=== PATIENT | male | born 1980 | race Caucasian/White ===

== ENCOUNTER 2019-05-04 10:05 | Emergency (ER) | payer MEDICARE, OTHER ==
[2019-05-04 10:24] VITALS: BP 130/90; PULSE 73
[2019-05-04] MEDS ORDERED: Ondansetron 4 MG/2 ML SDV IVPUSH ONE (10:41)
[2019-05-04] MEDS ORDERED: Sodium Chloride 0.9% 1,000 ML IV STA (10:41)
[2019-05-04] MEDS ORDERED: Sodium Chloride 0.9% 10 ML Syringe FLUSH PRN (10:41)
[2019-05-04] MEDS ORDERED: HYDROmorphone 1 MG/ML Syringe IVPUSH ONE (10:43)
--- NOTE | 2019-05-04 11:09 | EDM.PDOC ---
ED HPI GENERAL MEDICAL PROBLEM - General Chief Complaint: Abdominal Pain Stated Complaint: VOMITING X 1WEEK,RIGHT SIDE PAIN Time Seen by Provider: 05/04/19 10:34 Source of Information: Reports: Patient History Limitations: Reports: No Limitations - History of Present Illness INITIAL COMMENTS - FREE TEXT/NARRATIVE: The patient presents with left lower abdominal pain, nausea and vomiting. This started about a week ago. He says there is also pain to the mid abdomen. He has no fever but he does have chills. He has some loose stools at times. He has no dysuria. He still has his gallbladder and appendix. He has no chest pain or shortness of breath. He has generalized weakness. Onset: Gradual Duration: Week(s): (1) Location: Reports: Abdomen Quality: Reports: Sharp Severity: Moderate Improves with: Reports: None Associated Symptoms: Reports: Fever/Chills, Nausea/Vomiting. Denies: Chest Pain , Cough, Headaches, Shortness of Breath Left Lower Abdomen Pain Score (Numeric/FACES): 6 - Related Data Allergies Allergy/AdvReac Type Severity Reaction Status Date / Time amoxicillin Allergy Cannot Verified 05/04/19 10:24 Remember Penicillins Allergy Cannot Verified 05/04/19 10:24 Remember Home Meds: Home Meds DULoxetine HCl [Cymbalta] 60 mg PO DAILY 01/04/16 [History] traMADol [Ultram] 50 mg PO Q8HR PRN 01/04/16 [History] Ondansetron [Zofran ODT] 4 mg PO Q6H PRN #20 tab.dis 05/04/19 [Rx] Rosuvastatin [Crestor] 20 mg PO DAILY 05/04/19 [History] metFORMIN [Glucophage XR] 1,000 mg PO DAILY 05/04/19 [History] risperiDONE 2 mg PO QAM 05/04/19 [History] risperiDONE 3 mg PO QPM 05/04/19 [History] tiZANidine [Zanaflex] 4 mg PO ASDIRECTED PRN 05/04/19 [History] Past Medical History HEENT History: Reports: Impaired Vision Cardiovascular History: Reports: High Cholesterol Respiratory History: Reports: Sleep Apnea Other Respiratory History: bipap Gastrointestinal History: Reports: Chronic Constipation, GERD, Hemorrhoids Musculoskeletal History: Reports: Fibromyalgia Neurological History: Reports: Concussion Psychiatric History: Reports: Anxiety, Dementia, PTSD, Schizophrenia Social & Family History - Tobacco Use Smoking Status *Q: Former Smoker Used Tobacco, but Quit: Yes Month/Year Tobacco Last Used: 2016 - Caffeine Use Caffeine Use: Reports: None - Recreational Drug Use Recreational Drug Use: No ED ROS GENERAL - Review of Systems Review Of Systems: See Below Constitutional: Reports: Chills. Denies: Fever HEENT: Reports: No Symptoms Respiratory: Reports: No Symptoms Cardiovascular: Reports: No Symptoms Endocrine: Reports: No Symptoms GI/Abdominal: Reports: Abdominal Pain, Nausea, Vomiting : Reports: No Symptoms Musculoskeletal: Reports: No Symptoms Skin: Reports: No Symptoms ED EXAM, GI/ABD - Physical Exam Exam: See Below Exam Limited By: No Limitations General Appearance: Alert, No Apparent Distress Ears: Normal External Exam Nose: Normal Inspection Head: Atraumatic, Normocephalic Neck: Normal Inspection Respiratory/Chest: No Respiratory Distress, Lungs Clear, Normal Breath Sounds Cardiovascular: Regular Rate, Rhythm, No Edema, No Murmur GI/Abdominal Exam: Soft, No Organomegaly, No Mass, Tender (Moderate pain upon palpation to the left abdomen and mid abdomen) Course - Vital Signs Last Recorded V/S: Last Vital Signs Temp 98.4 F 05/04/19 10:21 Pulse 73 05/04/19 10:21 Resp 14 05/04/19 10:21 BP 130/90 05/04/19 10:21 Pulse Ox 100 05/04/19 10:21 - Orders/Labs/Meds Orders: Active Orders 24 hr Category Date Time Status Peripheral IV Care [RC] . DIRECTED Care 05/04/19 10:42 Active Sodium Chloride 0.9% [Saline Flush] Med 05/04/19 10:41 Active 10 ml FLUSH ASDIRECTED PRN ED Antiemetic Medication Reflex [OM.PC] Stat Oth 05/04/19 10:42 Ordered Peripheral IV Insertion Adult [OM.PC] Stat Oth 05/04/19 10:41 Ordered Medication Orders Sodium Chloride (Saline Flush) 10 ml FLUSH ASDIRECTED PRN PRN Reason: Keep Vein Open Last Admin: 05/04/19 10:59 Dose: 10 ml Labs: Laboratory Tests 05/04/19 05/04/19 05/04/19 Range/Units 10:46 10:55 10:55 WBC 5.52 (4.23-9.07) K/mm3 RBC 4.89 (4.63-6.08) M/mm3 Hgb 14.7 (13.7-17.5) gm/dl Hct 43.2 (40.1-51.0) % MCV 88.3 (79.0-92.2) fl MCH 30.1 (25.7-32.2) pg MCHC 34.0 (32.2-35.5) g/dl RDW Std Deviation 38.2 (35.1-43.9) fL Plt Count 322 (163-337) K/mm3 MPV 10.4 (9.4-12.3) fl Neut % (Auto) 66.4 (34.0-67.9) % Lymph % (Auto) 23.4 (21.8-53.1) % [place] % (Auto) 8.5 (5.3-12.2) % Eos % (Auto) 1.3 (0.8-7.0) Baso % (Auto) 0.2 (0.1-1.2) % Neut # (Auto) 3.67 (1.78-5.38) K/mm3 Lymph # (Auto) 1.29 L (1.32-3.57) K/mm3 [place] # (Auto) 0.47 (0.30-0.82) K/mm3 Eos # (Auto) 0.07 (0.04-0.54) K/mm3 Baso # (Auto) 0.01 (0.01-0.08) K/mm3 Sodium 142 (136-145) mEq/L Potassium 4.2 (3.5-5.1) mEq/L Chloride 104 (98-107) mEq/L Carbon Dioxide 28 (21-32) mEq/L Anion Gap 14.2 (5-15) BUN 10 (7-18) mg/dL Creatinine 1.3 (0.7-1.3) mg/dL Est Cr Clr Drug Dosing 67.48 mL/min Estimated GFR (MDRD) > 60 (>60) mL/min BUN/Creatinine Ratio 7.7 L (14-18) Glucose 107 H (74-106) mg/dL Calcium 9.0 (8.5-10.1) mg/dL Total Bilirubin 0.4 (0.2-1.0) mg/dL AST 32 (15-37) U/L ALT 64 H (16-63) U/L Alkaline Phosphatase 97 (46-116) U/L Total Protein 7.6 (6.4-8.2) g/dl Albumin 3.9 (3.4-5.0) g/dl Globulin 3.7 gm/dL Albumin/Globulin Ratio 1.1 (1-2) Lipase 83 (73-393) U/L Urine Color Yellow (Yellow) Urine Appearance Clear (Clear) Urine pH 7.0 (5.0-8.0) Ur Specific [place] 1.020 (1.005-1.030) Urine Protein Negative (Negative) Urine Glucose (UA) Negative (Negative) Urine Ketones Negative (Negative) Urine Occult Blood Negative (Negative) Urine Nitrite Negative (Negative) Urine Bilirubin Negative (Negative) Urine Urobilinogen 0.2 (0.2-1.0) Ur Leukocyte Esterase Negative (Negative) Urine RBC Not seen (0-5) /hpf Urine WBC Not seen (0-5) /hpf Ur Squamous Epith Cells 0-5 (0-5) /hpf Urine Bacteria Rare (FEW) /hpf Urine Mucus Few (FEW) /hpf Meds: Medications Generic Name Dose Route Start Last Admin Trade Name Freq PRN Reason Stop Dose Admin Sodium Chloride 10 ml 05/04/19 10:41 05/04/19 10:59 Saline Flush FLUSH 10 ml ASDIRECTED PRN Administration Keep Vein Open Discontinued Medications Generic Name Dose Route Start Last Admin Trade Name Freq PRN Reason Stop Dose Admin Diatrizoate Meglum/Diatrizoate Sod 90 ml 05/04/19 11:43 05/04/19 12:07 Gastrografin 37% PO 05/04/19 11:44 90 ml ONETIME ONE Administration Hydromorphone HCl 1 mg 05/04/19 10:43 05/04/19 10:59 Dilaudid IVPUSH 05/04/19 10:44 1 mg ONETIME ONE Administration Sodium Chloride 1,000 mls @ 1,000 mls/hr 05/04/19 10:41 05/04/19 11:00 Normal Saline IV 05/04/19 11:40 1,000 mls/hr .BOLUS STA Administration Iopamidol 100 ml 05/04/19 11:43 05/04/19 12:08 Isovue-300 (61%) IVPUSH 05/04/19 11:44 100 ml ONETIME ONE Administration Ondansetron HCl 4 mg 05/04/19 10:41 05/04/19 10:59 Zofran IVPUSH 05/04/19 10:42 4 mg ONETIME ONE Administration Sodium Chloride 10 ml 05/04/19 11:43 05/04/19 12:08 Saline Flush FLUSH 05/04/19 11:44 10 ml ONETIME ONE Administration - Re-Assessments/Exams Free Text/Narrative Re-Assessment/Exam: 05/04/19 11:08 I ordered an IV NS 1L bolus, zofran 4mg IV, dilaudid 1mg IV, labs, UA and a CT of his abdomen and pelvis with IV and oral contrast. 05/04/19 13:57 His CBC and CMP look good. His lipase is normal. His CT shows fatty infiltration within the liver. Nothing acute appreciated on CT study of the abdomen and pelvis. He feels better. I will discharge him home. Departure - Departure Time of Disposition: 14:00 Disposition: Home, Self-Care 01 Condition: Good Clinical Impression: Gastroenteritis - Discharge Information *PRESCRIPTION DRUG MONITORING PROGRAM REVIEWED*: No *COPY OF PRESCRIPTION DRUG MONITORING REPORT IN PATIENT DASHA: No Prescriptions: Ondansetron [Zofran ODT] 4 mg PO Q6H PRN #20 tab.dis PRN Reason: Nausea\vomiting Referrals: Glenny Segura PA-C [Primary Care Provider] - 1 Week Forms: ED Department Discharge Additional Instructions: Drink plenty of fluids. Take zofran every 6 hours as needed for nausea and vomiting. Advance your diet as tolerated. - My Orders Last 24 Hours: My Active Orders 05/04/19 10:41 Sodium Chloride 0.9% [Saline Flush] 10 ml FLUSH ASDIRECTED PRN Peripheral IV Insertion Adult [OM.PC] Stat 05/04/19 10:42 Peripheral IV Care [RC] . DIRECTED ED Antiemetic Medication Reflex [OM.PC] Stat - Assessment/Plan Last 24 Hours: My Active Orders 05/04/19 10:41 Sodium Chloride 0.9% [Saline Flush] 10 ml FLUSH ASDIRECTED PRN Peripheral IV Insertion Adult [OM.PC] Stat 05/04/19 10:42 Peripheral IV Care [RC] . DIRECTED ED Antiemetic Medication Reflex [OM.PC] Stat
[2019-05-04] MEDS ORDERED: Sodium Chloride 0.9% 10 ML Syringe FLUSH ONE (11:43)
[2019-05-04] MEDS ORDERED: Iopamidol 612 MG/ML 100 ML Bottle IVPUSH ONE (11:43)
[2019-05-04] MEDS ORDERED: Diatrizoate Meglumine/Diatrizoate Sodium 37% 120 ML Bottle PO ONE (11:43)
--- NOTE | 2019-05-04 13:12 | CT ---
CT abdomen and pelvis Technique: Multiple axial sections were obtained from above the dome of the diaphragm inferiorly through the pubic symphysis. Intravenous and oral contrast was utilized. Delayed images were obtained through the bladder. Comparison: No prior abdominal imaging. Findings: Visualized lung bases show nothing acute. Liver shows mild fatty infiltration without focal abnormality being seen within the liver. Spleen appears within normal limits. Soft tissue nodule located medial to the spleen is compatible with accessory splenic tissue. Adrenal glands show no nodule. Pancreas is within normal limits. One or 2 duodenal diverticuli are seen. Largest diverticula measures 2.5 cm. Kidneys show symmetric contrast enhancement with no hydronephrosis or mass. Aorta shows no aneurysm. No retroperitoneal adenopathy or mesenteric abnormalities are seen. Appendix is seen and is normal in size. No pelvic mass or adenopathy is identified. Delayed images show contrast within the distal ureters and within the bladder. Bone window settings were reviewed which appear within normal limits for the patient's age. Impression: 1. Fatty infiltration within the liver. 2. Nothing acute is appreciated on CT study of the abdomen and pelvis. Diagnostic code #2
== END 2019-05-04 14:15 | disposition home or self-care (01) ==
LOC: JD.ED 10:05
DX: K52.9 Noninfective gastroenteritis and colitis, unspecified (principal); F32.9 Major depressive disorder, single episode, unspecified; E78.00 Pure hypercholesterolemia, unspecified; Z88.1 Allergy status to other antibiotic agents; Z88.0 Allergy status to penicillin
CPT/HCPCS: 36415; 74177; 80053; 81001; 83690; 85025; 96361; 96374; 96375; 99284; J1170; J2405; J7040; Q9963; Q9967; 99283

== ENCOUNTER 2019-11-04 22:25 | Emergency (ER) | payer MEDICARE, OTHER ==
[2019-11-04 22:39] VITALS: BP 120/89; PULSE 87
--- NOTE | 2019-11-04 22:59 | EDM.PDOC ---
ED HPI GENERAL MEDICAL PROBLEM - General Chief Complaint: Abdominal Pain Stated Complaint: left arm pain abdominal pain Time Seen by Provider: 11/04/19 22:28 Source of Information: Reports: Patient History Limitations: Reports: No Limitations - History of Present Illness INITIAL COMMENTS - FREE TEXT/NARRATIVE: This is a 39-year-old male. He comes tonight because he is having 2 problems. The first one involves his neck in which he injured it back in 2007 and since that time he is been getting progressive degenerative disc disease and had an MRI about a year ago and due to the findings was sent to a neurosurgeon who states he would not do any surgery on his neck. Patient states that it seems to be getting worse and he is on tramadol chronically for his symptoms. He does have pain that runs down his left arm especially with movement of that cervical spine. He says it involves all of his fingers. He has not seen his family doctor recently and I have encouraged him to go back to his family doctor and be reassessed and possibly another MRI and possibly be sent back to the neurosurgeon since he is having radicular symptoms. That is what he will do. His second problem is chronic abdominal pain is been going on for several years. He thinks he may be dehydrated but he has been drinking fluids appropriately. He thinks it might be his kidneys because he might be dehydrated but he is drinking fluids appropriately. He has not had a bowel movement in 2 days which is unusual for him. Most of his abdominal discomfort is in the lower abdomen not the upper abdomen. He denies any fever or chills there is been no nausea or vomiting. Again this is not a new problem as far as abdominal pain but he comes to the ER because he is concerned that he is dehydrated. He denies any cough denies any congestion denies any other acute symptoms. Abdomen Pain Score (Numeric/FACES): 10 - Related Data Allergies Allergy/AdvReac Type Severity Reaction Status Date / Time amoxicillin Allergy Severe Cannot Verified 11/04/19 22:40 Remember Penicillins Allergy Severe Cannot Verified 11/04/19 22:40 Remember Home Meds: Home Meds DULoxetine HCl [Cymbalta] 60 mg PO DAILY 01/04/16 [History] traMADol [Ultram] 50 mg PO Q8HR PRN 01/04/16 [History] Ondansetron [Zofran ODT] 4 mg PO Q6H PRN #20 tab.dis 05/04/19 [Rx] Rosuvastatin [Crestor] 20 mg PO DAILY 05/04/19 [History] metFORMIN [Glucophage XR] 1,000 mg PO DAILY 05/04/19 [History] risperiDONE 2 mg PO QAM 05/04/19 [History] risperiDONE 3 mg PO QPM 05/04/19 [History] tiZANidine [Zanaflex] 4 mg PO ASDIRECTED PRN 05/04/19 [History] Ubidecarenone [Co Q-10] 1 cap PO DAILY 11/04/19 [History] Past Medical History HEENT History: Reports: Impaired Vision Cardiovascular History: Reports: High Cholesterol Respiratory History: Reports: Sleep Apnea Other Respiratory History: bipap Gastrointestinal History: Reports: Chronic Constipation, GERD, Hemorrhoids Musculoskeletal History: Reports: Fibromyalgia Neurological History: Reports: Concussion Psychiatric History: Reports: Anxiety, Dementia, PTSD, Schizophrenia Social & Family History - Caffeine Use Caffeine Use: Reports: None ED ROS GENERAL - Review of Systems Review Of Systems: See Below Constitutional: Denies: Fever, Chills HEENT: Reports: No Symptoms Respiratory: Denies: Shortness of Breath, Cough Cardiovascular: Denies: Chest Pain Endocrine: Reports: No Symptoms GI/Abdominal: Reports: Abdominal Pain, Constipation. Denies: Diarrhea, Decreased Appetite, Nausea, Vomiting : Denies: Dysuria Musculoskeletal: Reports: Neck Pain, Arm Pain Skin: Reports: No Symptoms Neurological: Reports: Tingling Psychiatric: Reports: No Symptoms Hematologic/Lymphatic: Reports: No Symptoms ED EXAM, GI/ABD - Physical Exam Exam: See Below Exam Limited By: No Limitations General Appearance: Alert, WD/WN, No Apparent Distress Eyes: Bilateral: Normal Appearance Ears: Normal External Exam Nose: Normal Inspection Throat/Mouth: Normal Lips, Normal Voice, No Airway Compromise, Other (Mucous membranes are moist) Head: Normocephalic Neck: Supple, Other (Complaint of pain in the right trapezius and paraspinal muscles of the neck and when he laterally bends his head to the right he complains of increased pain down his left arm.) Respiratory/Chest: No Respiratory Distress, Lungs Clear, Normal Breath Sounds Cardiovascular: Regular Rate, Rhythm, No Murmur GI/Abdominal Exam: Soft, Other (Some mild soreness in the lower abdomen on palpation but there is no masses no rebound there is no peritoneal irritation, his upper abdomen is nontender) Back Exam: Full Range of Motion Extremities: Normal Inspection, Normal Range of Motion, Other (Appears to have good function of that left upper extremity though he complains of tingling in his fingers all of them though he does have feeling to them as well) Neurological: Alert, Oriented Psychiatric: Normal Mood, Flat Affect Skin Exam: Warm, Intact Course - Vital Signs Last Recorded V/S: Last Vital Signs Temp 98 F 11/04/19 22:33 Pulse 87 11/04/19 22:33 Resp 18 11/04/19 22:33 BP 120/89 11/04/19 22:33 Pulse Ox 95 11/04/19 22:33 - Orders/Labs/Meds Orders: Active Orders 24 hr Category Date Time Status KUB [Abdomen 1V Flat] [CR] Stat Exams 11/04/19 22:52 Taken Labs: Laboratory Tests 11/04/19 11/04/19 11/04/19 Range/Units 23:10 23:15 23:15 WBC 8.04 (4.23-9.07) K/mm3 RBC 4.75 (4.63-6.08) M/mm3 Hgb 14.4 (13.7-17.5) gm/dl Hct 43.0 (40.1-51.0) % MCV 90.5 (79.0-92.2) fl MCH 30.3 (25.7-32.2) pg MCHC 33.5 (32.2-35.5) g/dl RDW Std Deviation 40.1 (35.1-43.9) fL Plt Count 336 (163-337) K/mm3 MPV 10.5 (9.4-12.3) fl Neut % (Auto) 53.8 (34.0-67.9) % Lymph % (Auto) 32.0 (21.8-53.1) % [place] % (Auto) 10.2 (5.3-12.2) % Eos % (Auto) 3.5 (0.8-7.0) Baso % (Auto) 0.4 (0.1-1.2) % Neut # (Auto) 4.33 (1.78-5.38) K/mm3 Lymph # (Auto) 2.57 (1.32-3.57) K/mm3 [place] # (Auto) 0.82 (0.30-0.82) K/mm3 Eos # (Auto) 0.28 (0.04-0.54) K/mm3 Baso # (Auto) 0.03 (0.01-0.08) K/mm3 Sodium 144 (136-145) mEq/L Potassium 3.9 (3.5-5.1) mEq/L Chloride 104 (98-107) mEq/L Carbon Dioxide 32 (21-32) mEq/L Anion Gap 11.9 (5-15) BUN 10 (7-18) mg/dL Creatinine 1.2 (0.7-1.3) mg/dL Est Cr Clr Drug Dosing 73.10 mL/min Estimated GFR (MDRD) > 60 (>60) mL/min BUN/Creatinine Ratio 8.3 L (14-18) Glucose 101 (74-106) mg/dL Calcium 8.7 (8.5-10.1) mg/dL Total Bilirubin 0.2 (0.2-1.0) mg/dL AST 14 L (15-37) U/L ALT 27 (16-63) U/L Alkaline Phosphatase 105 (46-116) U/L Total Protein 7.5 (6.4-8.2) g/dl Albumin 3.8 (3.4-5.0) g/dl Globulin 3.7 gm/dL Albumin/Globulin Ratio 1.0 (1-2) Lipase 104 (73-393) U/L Urine Color Yellow (Yellow) Urine Appearance Clear (Clear) Urine pH 5.5 (5.0-8.0) Ur Specific [place] > or = 1.030 (1.005-1.030) Urine Protein Negative (Negative) Urine Glucose (UA) Negative (Negative) Urine Ketones Negative (Negative) Urine Occult Blood Negative (Negative) Urine Nitrite Negative (Negative) Urine Bilirubin Negative (Negative) Urine Urobilinogen 0.2 (0.2-1.0) Ur Leukocyte Esterase Negative (Negative) Urine RBC 0-5 (0-5) /hpf Urine WBC 0-5 (0-5) /hpf Ur Squamous Epith Cells 0-5 (0-5) /hpf Urine Bacteria Rare (FEW) /hpf Urine Mucus Moderate H (FEW) /hpf - Radiology Interpretation Free Text/Narrative:: KUB does not show any acute changes though he does have a moderate amount of stool in the colon - Re-Assessments/Exams Free Text/Narrative Re-Assessment/Exam: 11/05/19 00:11 I spoke to the patient regarding his lab results and his KUB. He looks like he is got a lot of stool in his colon and I will give him some mag citrate to take home to drink. I have also encouraged him to follow-up with his family doctor regarding getting a repeat MRI of his cervical spine to see if he needs to see the neurosurgeon again. The patient states he understands. Departure - Departure Time of Disposition: 00:13 Disposition: Home, Self-Care 01 Condition: Fair Clinical Impression: DDD (degenerative disc disease), cervical, Cervical radiculopathy Constipation Qualifiers: Constipation type: slow transit constipation Qualified Code(s): K59.01 - Slow transit constipation - Discharge Information *PRESCRIPTION DRUG MONITORING PROGRAM REVIEWED*: Not Applicable *COPY OF PRESCRIPTION DRUG MONITORING REPORT IN PATIENT DASHA: Not Applicable Instructions: Degenerative Disk Disease, Constipation, Adult, Fqof-kg-Mols Referrals: Glenny Segura PA-C [Primary Care Provider] - Forms: ED Department Discharge Additional Instructions: I would encourage you to follow-up with your primary care provider and consider getting another MRI of your cervical spine to see if there is a change that you might need to go back and see the surgeon especially with your left arm symptoms , if you take tramadol on a regular basis it will make you constipated and that is what is causing your lower abdominal soreness and pain, we gave you some MAGNESIUM CITRATE AND YOU NEED TO DRINK 1/2 BOTTLE IN THE MORNING AND THEN IF YOU HAVE NO RESULTS AFTER 12 HOURS YOU DRINK THE OTHER 1/2 BOTTLE, I would encourage you to take Colace on a regular basis since you are on tramadol on a regular basis, return to the ER as needed Sepsis Event Note - Evaluation Sepsis Screening Result: No Definite Risk - Focused Exam Vital Signs: Vital Signs Temp Pulse Resp BP Pulse Ox 11/04/19 22:33 98 F 87 18 120/89 95 Date Exam was Performed: 11/05/19 Time Exam was Performed: 00:11 - My Orders Last 24 Hours: My Active Orders 11/04/19 22:52 KUB [Abdomen 1V Flat] [CR] Stat - Assessment/Plan Last 24 Hours: My Active Orders 11/04/19 22:52 KUB [Abdomen 1V Flat] [CR] Stat
[2019-11-05] MEDS ORDERED: Magnesium Citrate Solution 296 ML Bottle PO ONE (00:12)
--- NOTE | 2019-11-05 14:04 | CR ---
Abdomen: Supine view of the abdomen was obtained. Comparison: No prior abdominal imaging. Bowel gas pattern appears within normal limits. No abnormal soft tissue abnormality is seen. Calcifications are noted within the pelvis having the appearance of phleboliths. Nothing acute is appreciated. Impression: 1. Incidental findings as described above. Diagnostic code #2 This report was dictated in MDT
== END 2019-11-05 00:25 | disposition home or self-care (01) ==
LOC: JD.ED 22:25
DX: K59.01 Slow transit constipation (principal); M50.10 Cervical disc disorder with radiculopathy, unspecified cervical region; E78.00 Pure hypercholesterolemia, unspecified; F03.90 Unspecified dementia, unspecified severity, without behavioral disturbance, psychotic disturbance, mood disturbance, and anxiety; F41.9 Anxiety disorder, unspecified; F20.9 Schizophrenia, unspecified; F43.10 Post-traumatic stress disorder, unspecified; Z88.1 Allergy status to other antibiotic agents; Z88.0 Allergy status to penicillin; Z79.899 Other long term (current) drug therapy; Z79.84 Long term (current) use of oral hypoglycemic drugs
CPT/HCPCS: 36415; 74018; 80053; 81001; 83690; 85025; 99284; A9270; 99283

== ENCOUNTER 2020-03-05 11:56 | Emergency (ER) | payer MEDICARE, OTHER ==
[2020-03-05] MEDS ORDERED: Aspirin 81 MG Tab.Chew PO ONE (12:16)
--- NOTE | 2020-03-05 12:37 | EDM.PDOC ---
ED HPI GENERAL MEDICAL PROBLEM - General Chief Complaint: Cardiovascular Problem Stated Complaint: ABNORMAL EKG SENT BY [facility] Time Seen by Provider: 03/05/20 12:04 Source of Information: Reports: Patient History Limitations: Reports: No Limitations - History of Present Illness INITIAL COMMENTS - FREE TEXT/NARRATIVE: Patient is a 40-year-old male who presents to the emergency department at the request of his primary care provider, Glenny Segura. He was in the clinic today having a preop clearance. EKG done in the clinic was found to be abnormal and there was concern that he was having an CA, therefore he was sent to the ER. Patient denies any cardiac history. States he had a stress stress test done many years ago and that was found to be normal. He has not had any chest pain over the last few days. States that he has had episodes of chest pain in the past, but none recently. He has felt a little short of breath, but attributes that to wearing a mask and his anxiety. Denies any recent heartburn or epigastrcic pain. States he has felt a little nauseous over that last few days, but denies vomiting. He has had diarrhea. Denies pain in his arms. - Related Data Allergies Allergy/AdvReac Type Severity Reaction Status Date / Time amoxicillin Allergy Severe Cannot Verified 11/04/19 22:40 Remember Penicillins Allergy Severe Cannot Verified 11/04/19 22:40 Remember Home Meds: Home Meds DULoxetine HCl [Cymbalta] 60 mg PO DAILY 01/04/16 [History] traMADol [Ultram] 50 mg PO Q8HR PRN 01/04/16 [History] Ondansetron [Zofran ODT] 4 mg PO Q6H PRN #20 tab.dis 05/04/19 [Rx] Rosuvastatin [Crestor] 20 mg PO DAILY 05/04/19 [History] metFORMIN [Glucophage XR] 1,000 mg PO DAILY 05/04/19 [History] risperiDONE 2 mg PO QAM 05/04/19 [History] risperiDONE 3 mg PO QPM 05/04/19 [History] tiZANidine [Zanaflex] 4 mg PO ASDIRECTED PRN 05/04/19 [History] Ubidecarenone [Co Q-10] 1 cap PO DAILY 11/04/19 [History] Past Medical History HEENT History: Reports: Impaired Vision Cardiovascular History: Reports: High Cholesterol Respiratory History: Reports: Sleep Apnea Other Respiratory History: bipap Gastrointestinal History: Reports: Chronic Constipation, GERD, Hemorrhoids Musculoskeletal History: Reports: Fibromyalgia, Neck Pain, Chronic Neurological History: Reports: Concussion Psychiatric History: Reports: Anxiety, Dementia, PTSD, Schizophrenia Social & Family History - Family History Family Medical History: Noncontributory - Tobacco Use Smoking Status *Q: Former Smoker Used Tobacco, but Quit: Yes Month/Year Tobacco Last Used: 30 yr - Caffeine Use Caffeine Use: Reports: Coffee, Energy Drinks - Recreational Drug Use Recreational Drug Use: No ED ROS GENERAL - Review of Systems Review Of Systems: See Below Constitutional: Reports: No Symptoms. Denies: Fever, Chills, Weakness HEENT: Reports: No Symptoms Respiratory: Reports: Shortness of Breath. Denies: Wheezing, Cough Cardiovascular: Reports: No Symptoms. Denies: Chest Pain, Dyspnea on Exertion, Lightheadedness, Palpitations, Syncope Endocrine: Reports: No Symptoms GI/Abdominal: Reports: Diarrhea, Nausea. Denies: Abdominal Pain, Vomiting : Reports: No Symptoms Musculoskeletal: Reports: No Symptoms Skin: Reports: No Symptoms Neurological: Reports: No Symptoms Psychiatric: Reports: No Symptoms Hematologic/Lymphatic: Reports: No Symptoms ED EXAM, GENERAL - Physical Exam Exam: See Below Exam Limited By: No Limitations General Appearance: Alert, WD/WN, No Apparent Distress Respiratory/Chest: No Respiratory Distress, Lungs Clear, Normal Breath Sounds, No Accessory Muscle Use, Chest Non-Tender Cardiovascular: Normal Peripheral Pulses, Regular Rate, Rhythm, No Edema, No Gallop, No JVD, No Murmur, No Rub GI/Abdominal: Normal Bowel Sounds, Soft, Non-Tender, No Organomegaly, No Distention, No Abnormal Bruit, No Mass Extremities: Normal Inspection, Normal Range of Motion, Non-Tender, Normal Capillary Refill, No Pedal Edema Neurological: Alert, Oriented, CN II-XII Intact, Normal Cognition, Normal Gait, Normal Reflexes, No Motor/Sensory Deficits Psychiatric: Normal Affect, Normal Mood Skin Exam: Warm, Dry, Intact, Normal Color, No Rash Course - Vital Signs Last Recorded V/S: Last Vital Signs Temp 97.1 F 03/05/20 12:08 Pulse 93 03/05/20 12:08 Resp 18 03/05/20 12:08 BP 147/95 H 03/05/20 12:08 Pulse Ox 94 L 03/05/20 12:08 - Orders/Labs/Meds Orders: Active Orders 24 hr Category Date Time Status COMPREHENSIVE METABOLIC PN,CMP [CHEM] Stat Lab 03/05/20 12:15 Results TROPONIN I [CHEM] Stat Lab 03/05/20 12:15 Results Labs: Laboratory Tests 03/05/20 03/05/20 03/05/20 Range/Units 12:15 12:15 12:15 WBC 6.87 (4.23-9.07) K/mm3 RBC 5.23 (4.63-6.08) M/mm3 Hgb 15.5 (13.7-17.5) gm/dl Hct 45.9 (40.1-51.0) % MCV 87.8 (79.0-92.2) fl MCH 29.6 (25.7-32.2) pg MCHC 33.8 (32.2-35.5) g/dl RDW Std Deviation 38.3 (35.1-43.9) fL Plt Count 335 (163-337) K/mm3 MPV 10.1 (9.4-12.3) fl Neut % (Auto) 79.2 H (34.0-67.9) % Lymph % (Auto) 13.5 L (21.8-53.1) % Mcminn % (Auto) 6.0 (5.3-12.2) % Eos % (Auto) 0.6 L (0.8-7.0) Baso % (Auto) 0.6 (0.1-1.2) % Neut # (Auto) 5.44 H (1.78-5.38) K/mm3 Lymph # (Auto) 0.93 L (1.32-3.57) K/mm3 Mcminn # (Auto) 0.41 (0.30-0.82) K/mm3 Eos # (Auto) 0.04 (0.04-0.54) K/mm3 Baso # (Auto) 0.04 (0.01-0.08) K/mm3 D-Dimer, Quantitative < 0.19 L (0.19-0.50) mg/L Sodium 137 (136-145) mEq/L Potassium 4.0 (3.5-5.1) mEq/L Chloride 100 (98-107) mEq/L Carbon Dioxide 30 (21-32) mEq/L Anion Gap 11.0 (5-15) BUN 11 (7-18) mg/dL Creatinine 1.5 H (0.7-1.3) mg/dL Est Cr Clr Drug Dosing 57.89 mL/min Estimated GFR (MDRD) 51 (>60) mL/min BUN/Creatinine Ratio 7.3 L (14-18) Glucose 205 H (74-106) mg/dL Total Bilirubin 0.4 (0.2-1.0) mg/dL AST 22 (15-37) U/L ALT 43 (16-63) U/L Alkaline Phosphatase 109 (46-116) U/L Troponin I < 0.017 (0.00-0.056) ng/mL Total Protein 7.7 (6.4-8.2) g/dl Albumin 3.9 (3.4-5.0) g/dl Globulin 3.8 gm/dL Albumin/Globulin Ratio 1.0 (1-2) Meds: Medications Discontinued Medications Generic Name Dose Route Start Last Admin Trade Name Freq PRN Reason Stop Dose Admin Aspirin 324 mg 03/05/20 12:16 Aspirin PO 03/05/20 12:17 ONETIME ONE - Re-Assessments/Exams Free Text/Narrative Re-Assessment/Exam: Pt is a 40 year old male sent to the ER by his PCP with concerns that he is having an CA after an abnormal EKG was completed in the clinic. He has had no chest pain. States he is "a little" SOB; however, he attributes it to anxiety and wearing a mask. EKG completed on triage did read out "Acute CA" based on possible ST depression in leads V1-V3; however, EKG was assessed by Dr. Jayden MD and he does not agree with this interpretation. I have ordered a CBC, CMP, d- dimer, troponin, 2V chest xray, and ASA 324mg po. 03/05/20 13:26 Patient's hematology was found to be grossly unremarkable. D-dimer and troponin were both negative. Electrolytes are all normal. Chest x-ray was normal. EKG was significant for sinus tachycardia at a rate 100 with a right bundle branch block and a left anterior fascicular block. Dr. Carpenter and disagrees with the computers interpretation of acute CA. Patient has had no chest pain and states he is feeling well at this time. We will discharge him home with instructions to follow-up with his PCP. He is concerned that he may not be able to go through with his surgery. Recommended that he call his PCP when he leaves the ER today to discuss today's findings. Discharge instructions as documented. Departure - Departure Time of Disposition: 13:32 Disposition: Home, Self-Care 01 Condition: Good Clinical Impression: Abnormal finding on EKG Instructions: Electrocardiogram, [id number] Referrals: Glenny Segura PA-C [Primary Care Provider] - Forms: ED Department Discharge Additional Instructions: You were seen in the emergency department today after being sent by her primary care provider with concerns that you could be having a heart attack. Your work- up included blood work, EKG of your heart, and a chest x-ray. Your blood work was found to be normal. Your cardiac enzymes are not elevated indicating that you are not having a heart attack. While there were some abnormalities on your EKG, these do not indicate that you are having a heart attack. It is unfortunate possible to tell how long these changes have been present. Recommend that you contact Glenny Segura to discuss today's findings and the possibility of her referring you to a internal security manager for evaluation. If you should develop any chest pain, increasing shortness of breath, or any other symptoms of concern, please not hesitate to return to the emergency department. Sepsis Event Note (ED) - Evaluation Sepsis Screening Result: No Definite Risk - Focused Exam Vital Signs: Vital Signs Temp Pulse Resp BP Pulse Ox 03/05/20 12:08 97.1 F 93 18 147/95 H 94 L - My Orders Last 24 Hours: My Active Orders 03/05/20 12:15 COMPREHENSIVE METABOLIC PN,CMP [CHEM] Stat TROPONIN I [CHEM] Stat - Assessment/Plan Last 24 Hours: My Active Orders 03/05/20 12:15 COMPREHENSIVE METABOLIC PN,CMP [CHEM] Stat TROPONIN I [CHEM] Stat
--- NOTE | 2020-03-05 12:48 | CR ---
Chest: 2 views of the chest were obtained. Comparison: No prior chest imaging. Heart size and mediastinum are normal. Lungs are clear with no acute parenchymal change. Bony structures are grossly intact. Impression: 1. Nothing acute is appreciated on 2 view chest x-ray. Diagnostic code #1 This report was dictated in MDT
[2020-03-05 14:08] VITALS: BP 128/90; PULSE 100
== END 2020-03-05 13:55 | disposition home or self-care (01) ==
LOC: JD.ED 11:56
DX: R94.31 Abnormal electrocardiogram [ECG] [EKG] (principal); R00.0 Tachycardia, unspecified; I45.2 Bifascicular block; E78.00 Pure hypercholesterolemia, unspecified; F41.9 Anxiety disorder, unspecified; Z87.891 Personal history of nicotine dependence; Z88.1 Allergy status to other antibiotic agents; Z88.0 Allergy status to penicillin; Z79.899 Other long term (current) drug therapy
CPT/HCPCS: 36415; 71046; 80053; 84484; 85025; 85379; 93005; 99285; A9270; 99282

== ENCOUNTER 2020-03-07 02:30 | Emergency (ER) | payer MEDICARE, OTHER ==
[2020-03-07 02:40] VITALS: BP 142/90; PULSE 102
--- NOTE | 2020-03-07 02:49 | EDM.PDOC ---
ED HPI GENERAL MEDICAL PROBLEM - General Chief Complaint: Back Pain or Injury Stated Complaint: NECK AND BACK PAIN Time Seen by Provider: 03/07/20 02:42 Source of Information: Reports: Patient History Limitations: Reports: No Limitations - History of Present Illness INITIAL COMMENTS - FREE TEXT/NARRATIVE: 40-year-old male presents to the ED with increased cervical neck pain and radiculopathy into his left upper extremity. This is chronic condition for him. He is scheduled for neck fusion surgery through an anterior approach with --neurosurgeon in [facility] on March 14. Recent abnormal ECG documented during recent preoperative assessment. Work-up in the ED done 2 days ago did not reveal any signs of a heart attack. The ECG is likely been abnormal for a lengthy period of time. It is my understanding he will require cardiology consultation before neurosurgery can proceed. Currently on maximum dose of Cymbalta 60 mg once daily for fibromyalgia syndrome. He is on risperidone 2 mg a.m. and 3 mg p.m. Tizanidine 4 mg 3 times daily for muscle spasm. He has been on all of these medicines for a lengthy period of time. Currently taking tramadol 100 mg to 50 mg tablets at a time twice daily. Tonight unable to sleep due to the severity of the pain. He is aware that his left arm spasms periodically, uncontrollably and was seen through the ED on the of this month i.e. 2 days ago and had complete work-up in regards to cardiac function and rule out OH. Cardiac markers were normal. In fact all labs were within normal limits. Patient was also worried that his blood sugar was running too low since he was feeling dizzy and lightheaded. He admits that he did have something to eat before coming to the ED. Blood sugar in the emergency department was 135. Patient reassured Onset: Other (Gradually worsening condition over the last 2 years) Duration: Chronic, Getting Worse Location: Reports: Neck, Back, Upper Extremity, Left (Get a pain into the left upper extremity from the neck.) Quality: Reports: Ache, Burning Severity: Severe (8 out of 10) Improves with: Reports: None Worsens with: Reports: Other (Keeping his neck in one position for too long makes it very stiff and rigid.) Context: Denies: Activity, Exercise, Lifting, Sick Contact, Trauma, Other Associated Symptoms: Reports: Cough, Malaise. Denies: No Other Symptoms, Confusion (Productive), Chest Pain, cough w sputum, Diaphoresis, Fever/Chills, Headaches, Loss of Appetite, Nausea/Vomiting, Rash, Seizure, Shortness of Breath, Syncope, Weakness Treatments ALUMINUM POOL INSTALLER: Reports: Other (see below) Neck Pain Score (Numeric/FACES): 7 - Related Data Allergies Allergy/AdvReac Type Severity Reaction Status Date / Time amoxicillin Allergy Severe Cannot Verified 03/07/20 02:40 Remember Penicillins Allergy Severe Cannot Verified 03/07/20 02:40 Remember Home Meds: Home Meds DULoxetine HCl [Cymbalta] 60 mg PO DAILY 01/04/16 [History] traMADol [Ultram] 50 mg PO Q8HR PRN 01/04/16 [History] Ondansetron [Zofran ODT] 4 mg PO Q6H PRN #20 tab.dis 05/04/19 [Rx] Rosuvastatin [Crestor] 20 mg PO DAILY 05/04/19 [History] metFORMIN [Glucophage XR] 1,000 mg PO DAILY 05/04/19 [History] risperiDONE 2 mg PO QAM 05/04/19 [History] risperiDONE 3 mg PO QPM 05/04/19 [History] tiZANidine [Zanaflex] 4 mg PO ASDIRECTED PRN 05/04/19 [History] Ubidecarenone [Co Q-10] 1 cap PO DAILY 11/04/19 [History] clonazePAM [Clonazepam] 1 mg PO BEDTIME #10 tablet 03/07/20 [Rx] traMADol HCl [Tramadol HCl] 100 mg PO TID #36 tablet 03/07/20 [Rx] Past Medical History HEENT History: Reports: Impaired Vision Cardiovascular History: Reports: High Cholesterol Respiratory History: Reports: Sleep Apnea Other Respiratory History: bipap Gastrointestinal History: Reports: Chronic Constipation, GERD, Hemorrhoids Musculoskeletal History: Reports: Fibromyalgia (Diagnosed 10 years ago.), Neck Pain, Chronic (Chronic cervical neck pain with radiculopathy into the left upper extremity. Recent diagnosis of degenerative disc disease and nerve root compression at multiple levels) Neurological History: Reports: Concussion Psychiatric History: Reports: Anxiety, Dementia, PTSD, Schizophrenia Social & Family History - Family History Family Medical History: Noncontributory - Tobacco Use Smoking Status *Q: Never Smoker Second Hand Smoke Exposure: No - Caffeine Use Caffeine Use: Reports: Coffee, Soda - Recreational Drug Use Recreational Drug Use: No - Living Situation & Occupation Living situation: Reports: Occupation: Disabled ED ROS GENERAL - Review of Systems Review Of Systems: See Below Constitutional: Reports: Fatigue, Decreased Appetite. Denies: Fever, Chills, Weight Loss HEENT: Reports: No Symptoms Respiratory: Reports: Shortness of Breath, Cough. Denies: Wheezing, Pleuritic Chest Pain (On exertion.), Sputum (Unproductive and intermittent), Hemoptysis Cardiovascular: Reports: Blood Pressure Problem, Dyspnea on Exertion, Lightheadedness. Denies: Claudication, Edema, Orthopnea Endocrine: Reports: Fatigue : Reports: Frequency, Other Musculoskeletal: Reports: Neck Pain (Sure usually x2. Chronic cervical neck pain with ), Shoulder Pain ( Back pain), Arm Pain ( left shoulder pain left arm pain), Back Pain (radiation into the left upper extremity.) Skin: Reports: No Symptoms Neurological: Reports: Dizziness, Paresthesia (Left upper extremity). Denies: Trouble Speaking, Difficulty Walking, Weakness, Change in Speech, Gait Disturbance, Other Psychiatric: Reports: Anxiety Hematologic/Lymphatic: Reports: No Symptoms Immunologic: Reports: No Symptoms ED EXAM, UPPER BACK/NECK PAIN - Physical Exam Exam: See Below Exam Limited By: No Limitations General Appearance: Alert, WD/WN, No Apparent Distress, Other (Temperature is 36.4 heart rate initially was 102. Respiratory was 18 with O2 sats of 95 to 97%. BP 142/90) Eye Exam: Bilateral Eye: Normal Inspection, PERRL Throat/Mouth Exam: Normal Inspection, Normal Lips, Normal Oropharynx Head Exam: Atraumatic, Normocephalic Neck Exam: Normal Alignment, Limited Range of Motion (Loss of 10 degrees flexion and 8 degrees extension. Loss of 10 degrees lateral flexion bilaterally.), Painful Range of Motion, Paraspinous Muscle Tender (Mild on the left side as compared to the right.), Tenderness, Tender Lateral. No: Full Range of Motion, Spinous Processes Tender Nexus Criteria: No: Posterior, Midline Cervical Tenderness, Evidence of Intoxication, Altered Level of Consciousness, Focal Neurological Deficit, Painful Distraction Injuries Cardiovascular/Respiratory: Regular Rate, Rhythm, No M/R/G, No JVD, Normal Breath Sounds, No Respiratory Distress. No: Normal Peripheral Pulses, JVD, Bradycardia GI/Abdominal: Normal Bowel Sounds, Soft, Non-Tender, No Organomegaly, No Distention, Other (Moderate obesity. Limits ability to palpate solid organs.) Back Exam: Decreased Range of Motion, Paraspinal Tenderness (Along both sides of the lumbar spine.). No: CVA Tenderness (L), CVA Tenderness (R), Muscle Spasm Extremities: Normal Inspection, Normal Range of Motion, Non-Tender, No Pedal Edema Neurologic: No Motor/Sensory Deficits, Alert, Normal Mood/Affect, Oriented x 3, Other (No evidence of biceps or triceps muscle wasting on the left side. Deltoid intact.) DTR: 2+: Bicep (R), Bicep (L), Tricep (R), Tricep (L), Patella (R), Patella (L), Achilles (R), Achilles (L) Psychiatric: Normal Affect, Normal Mood Skin Exam: Normal Color, Warm/Dry Course - Vital Signs Last Recorded V/S: Last Vital Signs Temp 36.4 C 03/07/20 02:35 Pulse 102 H 03/07/20 02:35 Resp 18 03/07/20 02:35 BP 142/90 H 03/07/20 02:35 Pulse Ox 95 03/07/20 02:35 - Orders/Labs/Meds Labs: Laboratory Tests 03/07/20 Range/Units 02:46 POC Glucose 135 H (70-105) mg/dL Meds: Medications Discontinued Medications Generic Name Dose Route Start Last Admin Trade Name Freq PRN Reason Stop Dose Admin Clonazepam 1 mg 03/07/20 02:54 Klonopin PO 03/07/20 02:55 ONETIME ONE Oxycodone/Acetaminophen 2 tab 03/07/20 02:54 Percocet 325-5 Mg PO 03/07/20 02:55 ONETIME ONE - Radiology Interpretation Free Text/Narrative:: 40-year-old male presents to the ED in the wee hours of the morning due to inability to sleep due to cervical neck pain and left upper extremity pain. This is a chronic problem for him and he is scheduled for cervical spine fusion surgery with Dr. Griffin-neurosurgeon at [facility] in [place] on March 14. The surgery may be delayed now because of abnormal ECG findings on preoperative assessment and requirement for cardiology consultation. This is making him somewhat apprehensive as well. He has been using tramadol 50 mg tablets usually 2 twice daily for pain relief. He is on maximum dose of Voltaren 60 mg once daily for fibromyalgia syndrome. Using tizanidine on a as needed basis for muscle spasm. Examination reveals limited range of motion of cervical spine with a very short neck. He has loss of 10 degrees lateral flexion bilaterally and 8 degrees extension. Reflexes are intact and there is no evidence of biceps or triceps or deltoid muscle wasting on the left side. Concerned his blood sugar might be running low and it was therefore checked in the ED and was found to be 135. Plan Percocet 5/325 mg tabs x2 now and clonazepam 1 mg by mouth 4 pain relief and to aid sleep tonight. Going to increase his tramadol to 100 mg every 8 hours for pain relief. Clonazepam 1 mg at bedtime's time 10 tablets to be used on a as needed basis if he cannot sleep. This will get him through until he can have his cervical spine surgery at which time other medications will be required for pain relief and muscle spasm Departure - Departure Time of Disposition: 02:55 Disposition: Home, Self-Care 01 Condition: Fair Clinical Impression: Cervical neck pain with evidence of disc disease - Discharge Information *PRESCRIPTION DRUG MONITORING PROGRAM REVIEWED*: Not Applicable *COPY OF PRESCRIPTION DRUG MONITORING REPORT IN PATIENT DASHA: Not Applicable Prescriptions: clonazePAM [Clonazepam] 1 mg PO BEDTIME #10 tablet traMADol HCl [Tramadol HCl] 100 mg PO TID #36 tablet Referrals: Glenny Segura PA-C [Primary Care Provider] - Forms: ED Department Discharge Additional Instructions: Patient in the emergency room this morning in regards to increasing pain in cervical spine rating down left arm and upper back. Known to have significant degenerative disc disease in the cervical spine with nerve root compression. Scheduled for surgery in the near future with neurosurgeon at [facility] in [place]. However cardiology consultation is now going to b e required before surgery can proceed. Due to difficulties with pain tonight you were given 2 Percocet 5/325 mg tablets for pain relief and clonazepam 1 mg tablet for pain relief and muscle spasm as well. The plan will be to increase her tramadol to 100 mg tablets and take 1 every 8 hours for pain relief until surgery can be completed. Also may use clonazepam 1 mg at bedtime as needed for muscle spasm relief and to help sleep. This tablet to be taken as needed if you are having difficulties sleeping due to pain. Sepsis Event Note (ED) - Evaluation Sepsis Screening Result: No Definite Risk - Focused Exam Vital Signs: Vital Signs Temp Pulse Resp BP Pulse Ox 03/07/20 02:35 36.4 C 102 H 18 142/90 H 95
[2020-03-07] MEDS ORDERED: ClonazePAM 1 MG Tab PO ONE (02:54)
[2020-03-07] MEDS ORDERED: Acetaminophen/oxyCODONE 325-5 MG Tab PO ONE (02:54)
== END 2020-03-07 03:08 | disposition home or self-care (01) ==
LOC: JD.ED 02:30
DX: M50.10 Cervical disc disorder with radiculopathy, unspecified cervical region (principal); M79.7 Fibromyalgia; E78.00 Pure hypercholesterolemia, unspecified; F03.90 Unspecified dementia, unspecified severity, without behavioral disturbance, psychotic disturbance, mood disturbance, and anxiety; F41.9 Anxiety disorder, unspecified; Z88.0 Allergy status to penicillin; Z88.1 Allergy status to other antibiotic agents; Z79.899 Other long term (current) drug therapy
CPT/HCPCS: 82962; 99283; A9270

== ENCOUNTER 2020-03-29 14:14 | Emergency (ER) | payer MEDICARE, OTHER ==
[2020-03-29] MEDS ORDERED: Dicyclomine 10 MG Cap PO ONE (14:23)
[2020-03-29 14:25] VITALS: BP 119/104; PULSE 105
--- NOTE | 2020-03-29 14:27 | EDM.PDOC ---
ED HPI GENERAL MEDICAL PROBLEM - General Chief Complaint: Chest Pain Stated Complaint: [facility] Time Seen by Provider: 03/29/20 14:16 Source of Information: Reports: Patient, EMS History Limitations: Reports: No Limitations - History of Present Illness INITIAL COMMENTS - FREE TEXT/NARRATIVE: 40-year-old male presents to the ED per [facility]. Chief complaint is retrosternal chest pressure discomfort and slight precordial left chest discomfort since yesterday morning. He states it lasted all night long and has persisted throughout the day today. He did drink a lot of soda pop yesterday with a lot of burping and belching. This tended to give him a little relief. Pain is worse with deep inspiration. Denies cough or sputum production no fever or chills. No hemoptysis. He has no history of cardiac disease. He has never smoked cigarettes. He does chew tobacco. He has mild hypertension. Of note he did undergo cervical spine fusion process by --neurosurgeon at [facility] in [place] on March 14. He presents in a hard collar to maintain position of his neck. His voice is normal but he states it is painful to swallow. He does get a fair amount of heartburn often takes Tums and Rolaids. He took Gas-X earlier today. He is not been very active of course with a cervical collar in place and has been sitting a good deal in an easy chair. Both legs are showing evidence of dependent edema. He has had no history of DVT in the past. No past history of heart disease and no family history of myocardial infarction. Onset: Gradual Onset Date: 03/28/20 Onset Time: 08:00 (Central chest pain was there yesterday morning at 8:00 when he awoke.) Duration: Day(s):, Getting Worse Location: Reports: Chest (No chest pain mild left precordial chest discomfort. No radiation to his back neck) Quality: Reports: Ache ( or arms.), Other (There is a pleuritic component to the pain as it definitely worsens with deep inspiration. He appreciates that seems to get a little worse with swallowing as well.) Severity: Moderate (He states it was an 8 out of 10. After fentanyl given by the paramedics it is down to a 3 out of 10.) Improves with: Reports: Medication (And all has helped a good deal with the pain.) Worsens with: Reports: Other (Swallowing seems to make the pain worse as does deep breathing.) Context: Reports: Other (Spontaneous occurrence.). Denies: Activity, Exercise, Lifting, Sick Contact, Trauma Associated Symptoms: Reports: No Other Symptoms, Chest Pain. Denies: Confusion, Cough, cough w sputum (See history of present illness), Fever/Chills, Headaches, Loss of Appetite, Malaise, Nausea/Vomiting, Rash, Seizure, Shortness of Breath, Syncope, Weakness Treatments G[employer]ER: Reports: Other (see below) Upper Chest Pain Score (Numeric/FACES): 3 - Related Data Allergies Allergy/AdvReac Type Severity Reaction Status Date / Time amoxicillin Allergy Mild Cannot Verified 03/29/20 15:34 Remember Penicillins Allergy Mild Cannot Verified 03/29/20 15:34 Remember Home Meds: Home Meds DULoxetine HCl [Cymbalta] 60 mg PO DAILY 01/04/16 [History] traMADol [Ultram] 50 mg PO Q8HR PRN 01/04/16 [History] Ondansetron [Zofran ODT] 4 mg PO Q6H PRN #20 tab.dis 05/04/19 [Rx] Rosuvastatin [Crestor] 20 mg PO DAILY 05/04/19 [History] metFORMIN [Glucophage XR] 1,000 mg PO DAILY 05/04/19 [History] risperiDONE 3 mg PO BID 05/04/19 [History] tiZANidine [Zanaflex] 4 mg PO ASDIRECTED PRN 05/04/19 [History] Ubidecarenone [Co Q-10] 1 cap PO DAILY 11/04/19 [History] clonazePAM [Clonazepam] 1 mg PO BEDTIME #10 tablet 03/07/20 [Rx] ARIPiprazole [Abilify] 10 mg PO DAILY 03/29/20 [History] Clindamycin HCl 600 mg PO QID 03/29/20 [History] DULoxetine [Cymbalta] 30 mg PO DAILY 03/29/20 [History] Doxycycline [Vibra-Tabs] 100 mg PO Q12HR #20 tab 03/29/20 [Rx] Hydrocodone/Acetaminophen [Lemont 5-325 Tablet] 1 tab PO Q4HR PRN 03/29/20 [History] Propranolol [Inderal] 10 mg PO BID 03/29/20 [History] Sennosides [Senokot] 8.6 mg PO DAILY 03/29/20 [History] hydrOXYzine pamoate [Hydroxyzine Pamoate] 25 mg PO TID PRN 03/29/20 [History] Past Medical History HEENT History: Reports: Impaired Vision Cardiovascular History: Reports: High Cholesterol Respiratory History: Reports: Sleep Apnea Other Respiratory History: bipap Gastrointestinal History: Reports: Chronic Constipation, GERD, Hemorrhoids Musculoskeletal History: Reports: Fibromyalgia (Diagnosed 10 years ago.), Neck Pain, Chronic (Chronic cervical neck pain with radiculopathy into the left upper extremity. Recent diagnosis of degenerative disc disease and nerve root compression at multiple levels) Neurological History: Reports: Concussion Psychiatric History: Reports: Anxiety, Dementia, PTSD, Schizophrenia - Past Surgical History Neurological Surgical History: Reports: C-Spine (Cervical spine fusion from an anterior approach done in March 14, [address] Schuster at [facility] in [facility].) Social & Family History - Family History Family Medical History: Noncontributory - Caffeine Use Caffeine Use: Reports: Coffee, Soda - Living Situation & Occupation Living situation: Reports: Occupation: Disabled ED ROS GENERAL - Review of Systems Review Of Systems: See Below Constitutional: Reports: Malaise, Weakness, Fatigue, Weight Gain. Denies: Fever, Chills HEENT: Reports: Other (No odynophagia.) Respiratory: Denies: Shortness of Breath, Wheezing, Pleuritic Chest Pain, Cough, Sputum, Hemoptysis Cardiovascular: Reports: Chest Pain (History of present illness), Dyspnea on Exertion, Edema (Both lower extremities since surgery.). Denies: Blood Pressure Problem, Claudication, Lightheadedness, Orthopnea Endocrine: Reports: Fatigue GI/Abdominal: Reports: Constipation (Case and a problem with constipation since surgery.), Other (Some odynophagia and he has a history of GERD rate worse as of late.). Denies: Nausea, Stool Incontinence, Vomiting : Reports: No Symptoms Musculoskeletal: Reports: Neck Pain (He remains in a hard cervical collar postop to maintain position of his neck hardware.) Skin: Reports: No Symptoms Neurological: Reports: No Symptoms Psychiatric: Reports: No Symptoms Hematologic/Lymphatic: Reports: No Symptoms Immunologic: Reports: No Symptoms ED EXAM, GENERAL - Physical Exam Exam: See Below Exam Limited By: No Limitations General Appearance: Alert, WD/WN, No Apparent Distress, Other (Temperature is 36.4 heart rate is 105 and sinus at the bedside respiratory 16 with O2 sats of 93% room air BP 119 104.) Eye Exam: Bilateral Eye: Normal Inspection (No blepharal pallor or scleral icterus.), PERRL Throat/Mouth: Normal Inspection, Normal Lips, Normal Oropharynx Head: Atraumatic, Normocephalic Neck: Normal Inspection, Other (Anterior surgical wound of the neck appears to b e healing satisfactory. Neck is immobilized in a hard collar and it was left in place.) Respiratory/Chest: No Respiratory Distress, Lungs Clear, Normal Breath Sounds, Decreased Breath Sounds (Decreased breath sounds to both posterior lung perez believed to be due to his size.) Cardiovascular: Normal Peripheral Pulses, Regular Rate, Rhythm, No Gallop, No Murmur, No Rub. No: No Edema Peripheral Pulses: 2+: Posterior Tibial (L), Posterior Tibial (R), Dorsalis Pedis (L), Dorsalis Pedis (R), 3+: Carotid (L), Carotid (R) GI/Abdominal: Normal Bowel Sounds, Soft, Non-Tender, No Organomegaly, No Abnormal Bruit, No Mass, Pelvis Stable, Other (Soft abdomen. Mildly obese. No surgical scars) Back Exam: Normal Inspection, Full Range of Motion. No: CVA Tenderness (L), CVA Tenderness (R) Extremities: Pedal Edema (2+ pitting edema both lower extremities. Some pain on palpation of the midline of the posterior calf bilaterally. Little worse on the left as compared to the right.) Neurological: Alert, Oriented, CN II-XII Intact, Normal Cognition, Normal Gait Psychiatric: Normal Affect, Normal Mood Skin Exam: Warm, Dry, Intact, Normal Color, No Rash EKG INTERPRETATION EKG Date: 03/29/20 Time: 14:30 Rhythm: Other Rate (Beats/Min): 105 Henderson: LAD-Left Henderson Deviation (-35 degrees) P-Wave: Present QRS: Other (R wave in lead I suggests left ventricular appear to the pattern. There is otherwise decreased voltage in the chest leads are precordial leads) QT: Prolonged (Mildly prolonged) Course - Vital Signs Last Recorded V/S: Last Vital Signs Temp 36.4 C 03/29/20 14:20 Pulse 105 H 03/29/20 14:20 Resp 16 03/29/20 14:20 BP 119/104 H 03/29/20 14:20 Pulse Ox 93 L 03/29/20 14:20 - Orders/Labs/Meds Orders: Active Orders 24 hr Category Date Time Status EKG Documentation Completion [RC] STAT Care 03/29/20 14:24 Active Sodium Chloride 0.9% [Normal Saline] 1,000 ml Med 03/29/20 14:30 Active IV ASDIRECTED Medication Orders Sodium Chloride (Normal Saline) 1,000 mls @ 125 mls/hr IV ASDIRECTED LIANNE Last Admin: 03/29/20 14:40 Dose: 125 mls/hr Documented by: AC Labs: Laboratory Tests 03/29/20 03/29/20 03/29/20 Range/Units 14:25 14:25 14:25 WBC 10.74 H (4.23-9.07) K/mm3 RBC 4.32 L (4.63-6.08) M/mm3 Hgb 12.9 L D (13.7-17.5) gm/dl Hct 39.5 L (40.1-51.0) % MCV 91.4 D (79.0-92.2) fl MCH 29.9 (25.7-32.2) pg MCHC 32.7 (32.2-35.5) g/dl RDW Std Deviation 40.0 (35.1-43.9) fL Plt Count 409 H (163-337) K/mm3 MPV 10.8 (9.4-12.3) fl Neut % (Auto) 78.3 H (34.0-67.9) % Lymph % (Auto) 11.2 L (21.8-53.1) % [place] % (Auto) 8.2 (5.3-12.2) % Eos % (Auto) 1.9 (0.8-7.0) Baso % (Auto) 0.2 (0.1-1.2) % Neut # (Auto) 8.42 H (1.78-5.38) K/mm3 Lymph # (Auto) 1.20 L (1.32-3.57) K/mm3 [place] # (Auto) 0.88 H (0.30-0.82) K/mm3 Eos # (Auto) 0.20 (0.04-0.54) K/mm3 Baso # (Auto) 0.02 (0.01-0.08) K/mm3 PT 10.4 (9.7-11.7) SECONDS INR 0.97 APTT 27 (22-31) SECONDS D-Dimer, Quantitative (0.19-0.50) mg/L Sodium 138 (136-145) mEq/L Potassium 4.0 (3.5-5.1) mEq/L Chloride 101 (98-107) mEq/L Carbon Dioxide 31 (21-32) mEq/L Anion Gap 10.0 (5-15) BUN 13 (7-18) mg/dL Creatinine 1.3 (0.7-1.3) mg/dL Est Cr Clr Drug Dosing 66.80 mL/min Estimated GFR (MDRD) > 60 (>60) mL/min BUN/Creatinine Ratio 10.0 L (14-18) Glucose 183 H (74-106) mg/dL Calcium 9.0 (8.5-10.1) mg/dL Magnesium 2.1 (1.8-2.4) mg/dl Total Bilirubin 0.5 (0.2-1.0) mg/dL AST 13 L (15-37) U/L ALT 26 (16-63) U/L Alkaline Phosphatase 117 H (46-116) U/L CK-MB (CK-2) 0.5 (0-3.6) ng/ml Troponin I < 0.017 (0.00-0.056) ng/mL C-Reactive Protein 4.5 H* (<1.0) mg/dL NT-Pro-B Natriuret Pep (0-125) pg/mL Total Protein 7.2 (6.4-8.2) g/dl Albumin 3.3 L (3.4-5.0) g/dl Globulin 3.9 gm/dL Albumin/Globulin Ratio 0.9 L (1-2) 03/29/20 03/29/20 Range/Units 14:25 14:25 WBC (4.23-9.07) K/mm3 RBC (4.63-6.08) M/mm3 Hgb (13.7-17.5) gm/dl Hct (40.1-51.0) % MCV (79.0-92.2) fl MCH (25.7-32.2) pg MCHC (32.2-35.5) g/dl RDW Std Deviation (35.1-43.9) fL Plt Count (163-337) K/mm3 MPV (9.4-12.3) fl Neut % (Auto) (34.0-67.9) % Lymph % (Auto) (21.8-53.1) % [place] % (Auto) (5.3-12.2) % Eos % (Auto) (0.8-7.0) Baso % (Auto) (0.1-1.2) % Neut # (Auto) (1.78-5.38) K/mm3 Lymph # (Auto) (1.32-3.57) K/mm3 [place] # (Auto) (0.30-0.82) K/mm3 Eos # (Auto) (0.04-0.54) K/mm3 Baso # (Auto) (0.01-0.08) K/mm3 PT (9.7-11.7) SECONDS INR APTT (22-31) SECONDS D-Dimer, Quantitative 1.68 H (0.19-0.50) mg/L Sodium (136-145) mEq/L Potassium (3.5-5.1) mEq/L Chloride (98-107) mEq/L Carbon Dioxide (21-32) mEq/L Anion Gap (5-15) BUN (7-18) mg/dL Creatinine (0.7-1.3) mg/dL Est Cr Clr Drug Dosing mL/min Estimated GFR (MDRD) (>60) mL/min BUN/Creatinine Ratio (14-18) Glucose (74-106) mg/dL Calcium (8.5-10.1) mg/dL Magnesium (1.8-2.4) mg/dl Total Bilirubin (0.2-1.0) mg/dL AST (15-37) U/L ALT (16-63) U/L Alkaline Phosphatase (46-116) U/L CK-MB (CK-2) (0-3.6) ng/ml Troponin I (0.00-0.056) ng/mL C-Reactive Protein (<1.0) mg/dL NT-Pro-B Natriuret Pep 23 (0-125) pg/mL Total Protein (6.4-8.2) g/dl Albumin (3.4-5.0) g/dl Globulin gm/dL Albumin/Globulin Ratio (1-2) Meds: Medications Generic Name Dose Route Start Last Admin Trade Name Waliq PRN Reason Stop Dose Admin Sodium Chloride 1,000 mls @ 125 mls/hr 03/29/20 14:30 03/29/20 14:40 Normal Saline IV 125 mls/hr ASDIRECTED LIANNE Administration Discontinued Medications Generic Name Dose Route Start Last Admin Trade Name Freq PRN Reason Stop Dose Admin Aspirin 324 mg 03/29/20 14:40 03/29/20 14:55 Aspirin PO 03/29/20 14:41 324 mg ONETIME ONE Administration Dicyclomine HCl 20 mg 03/29/20 14:23 03/29/20 14:40 Bentyl PO 03/29/20 14:24 20 mg ONETIME ONE Administration Nitroglycerin/Dextrose 25 mg in 250 mls @ 6 mls/hr 03/29/20 14:45 03/29/20 14:55 Nitroglycerin 25 Mg/D5w 250 Ml IV 10 mcg/min TITRATE LIANNE 6 mls/hr Administration Protocol 10 MCG/MIN Levofloxacin/Dextrose 750 mg/ 150 mls @ 100 mls/hr 03/29/20 15:33 03/29/20 16:28 Premix IV 03/29/20 17:02 100 mls/hr ONETIME ONE Administration - Radiology Interpretation Free Text/Narrative:: 40-year-old male presents to the ED per [facility] where he resides. Patient has undergone cervical spine fusion from an anterior approach on March 14 of this year. He therefore has been relatively immobile for the last 2 weeks. He does have a pleuritic component to the pain as it definitely worsens with deep inspiration. However he also has some mild odynophagia and a history of GERD. ECG reveals a sinus tachycardia at 105/min. There is a right bundle branch block pattern tall R waves in lead I suggest left ventricular appear to be pattern. There may well be posterior wall myocardial infarction as there is ST segment depression V1 to V3 which may be skewed by the bundle branch block. Lateral leads show early ST segment depression leads I and aVL. QTC is mildly prolonged. Left axis deviation of -35 degrees. Patient will therefore be given aspirin 324 mg chewed. He will be started on nitroglycerin drip since he still has central chest pain at 10 mcg/min. I will await his cardiac enzymes. - Re-Assessments/Exams Free Text/Narrative Re-Assessment/Exam: 03/29/20 15:26 chest x-ray done portably reveals a small density within the left lateral costophrenic angle most likely representing an area of pneumonia. Lungs otherwise are clear. Heart size and mediastinum are normal. Previous cervical spine surgery noted. Dimer is reported to be elevated at 1.68. 03/29/20 15:28 White count is slightly L bated at 10.74. Differential shows 78% neutrophils hemoglobin is 12.9 with hematocrit of 39.5. Platelet count slightly elevated 409,000. PT is 10.4 with an INR of 0.97. PTT is 27. Sodium 138 with a potassium 4.0 chloride 101 with a bicarb of 31. Anion gap is 10.0. BUN is 13 with a creatinine of 1.3. GFR is greater than 60. Glucose is 183 calcium is 9.0 magnesium is 2.1 total bilirubin 0.5. AST is 13 ALT is 26 and alk phos days is 117. Troponin I is less than 0.017. C-reactive protein elevated at 4.5. BNP is 23. Total protein 7.2 with an albumin fraction of 3.3. Therefore I believe that the small bump in his d-dimer is secondary to pneumonia left lower lobe. She will be given a dose of Levaquin 750mg intravenously in the ED since he is allergic to penicillin. 03/29/20 18:32 he has completed his IV Levaquin 750 mg IV. He will therefore be ready for discharge shortly. He will be discharged on doxycycline 100 mg twice daily for the next 10 days to help clear up both his wound infection anterior neck and pneumonia. This will not interact with his hydralazine that he is taking nearly every 4-6 hours for muscle relaxation. Of course stop the clindamycin that he is currently taking. Departure - Departure Time of Disposition: 18:30 Disposition: Home, Self-Care 01 Reason for Transfer *Q: Other Condition: Fair Clinical Impression: Pneumonia Qualifiers: Pneumonia type: due to unspecified organism Laterality: left Lung location: lower lobe of lung Qualified Code(s): J18.9 - Pneumonia, unspecified organism Prescriptions: Doxycycline [Vibra-Tabs] 100 mg PO Q12HR #20 tab Instructions: Community-Acquired Pneumonia, Adult, [id number] Referrals: PCP,None [Ordering Only Provider] - Forms: ED Department Discharge Additional Instructions: Evaluation in the emergency room today in regards to development of left and central chest pain yesterday morning shortly after arising which persisted throughout the day and all night last night and again this morning. No associated cough fever or chills. Concern of course was for possible heart attack. ECG G did not show evidence of any heart ischemia. Lab tests also proved to be completely normal with no evidence of heart related illness. Chest x-ray reveals the beginnings of a pneumonia in the lower left lung which correlates with your symptoms. When you breathe deeply you develop increased chest pain which is called pleurisy. You therefore can continue ibuprofen 600 mg every 6 hours or Aleve 2 tablets every 8 hours to relieve pain inflammation and/or fever relief. Initial dose of antibiotics were given in the ED. You will need to take antibiotic doxycycline 100 mg twice daily for the next 10 days to clear up the pneumonia completely. You of course need to stop current antibiotic clindamycin that you have been taking for the last 8 days for wound infection. The doxycycline will clear up wound infection as well as pneumonia. Suggest follow-up with your personal care physician in 10 to 12 days time sooner if you are having any problems. Sepsis Event Note (ED) - Focused Exam Vital Signs: Vital Signs Temp Pulse Resp BP Pulse Ox 03/29/20 14:20 36.4 C 105 H 16 119/104 H 93 L - My Orders Last 24 Hours: My Active Orders 03/29/20 14:24 EKG Documentation Completion [RC] STAT 03/29/20 14:30 Sodium Chloride 0.9% [Normal Saline] 1,000 ml IV ASDIRECTED - Assessment/Plan Last 24 Hours: My Active Orders 03/29/20 14:24 EKG Documentation Completion [RC] STAT 03/29/20 14:30 Sodium Chloride 0.9% [Normal Saline] 1,000 ml IV ASDIRECTED
[2020-03-29] MEDS ORDERED: Sodium Chloride 0.9% 1,000 ML IV SCH (14:30)
[2020-03-29] MEDS ORDERED: Aspirin 81 MG Tab.Chew PO ONE (14:40)
[2020-03-29] MEDS ORDERED: Nitroglycerin/D5W 25 MG/250 ML BOTTLE IV SCH (14:45)
--- NOTE | 2020-03-29 15:15 | CR ---
Chest: Portable view of the chest was obtained. Comparison: No prior chest imaging is available. Small density is noted within the lateral left costophrenic angle most likely representing small area of pneumonia. Lungs otherwise are clear. Heart size and mediastinum are normal. Previous cervical spine surgery is seen. Impression: 1. Small density within the left base as noted above. This is most likely due to small area of pneumonia. If patient has no infectious symptoms this could represent prominent area of atelectasis. 2. No other acute abnormality is suspected. Diagnostic code #3 This report was dictated in MDT
[2020-03-29] MEDS ORDERED: Levofloxacin/Dextrose 5%-Water 750 MG in Premix Bag 1 BAG IV ONE (15:33)
== END 2020-03-29 18:52 | disposition home or self-care (01) ==
LOC: JD.ED 14:14
DX: J18.9 Pneumonia, unspecified organism (principal); F41.9 Anxiety disorder, unspecified; F03.90 Unspecified dementia, unspecified severity, without behavioral disturbance, psychotic disturbance, mood disturbance, and anxiety; E78.00 Pure hypercholesterolemia, unspecified; F20.9 Schizophrenia, unspecified; Z88.1 Allergy status to other antibiotic agents; Z88.0 Allergy status to penicillin; Z79.899 Other long term (current) drug therapy
CPT/HCPCS: 36415; 71045; 80053; 82553; 83735; 83880; 84484; 85025; 85379; 85610; 85730; 86140; 93005; 96365; 96366; 96367; 99285; A9270; J1956; J3490; J7030; 93010; 99284

== ENCOUNTER 2020-08-12 22:31 | Emergency (ER) | payer MEDICARE, OTHER ==
[2020-08-12 22:37] VITALS: BP 129/80; PULSE 88
[2020-08-13] MEDS ORDERED: Ondansetron 4 MG/2 ML SDV IVPUSH ONE (00:37)
[2020-08-13] MEDS ORDERED: Sodium Chloride 0.9% 1,000 ML IV ONE (00:37)
--- NOTE | 2020-08-13 00:40 | EDM.PDOC ---
ED HPI GENERAL MEDICAL PROBLEM - General Chief Complaint: Diabetic Complaint Stated Complaint: [facility] Time Seen by Provider: 08/13/20 00:21 Source of Information: Reports: Patient History Limitations: Reports: No Limitations - History of Present Illness INITIAL COMMENTS - FREE TEXT/NARRATIVE: Mr. Pillai is a very pleasant 40-year-old gentleman who is now brought to the ED by EMS for abdominal pain and nausea. He states that he developed crampy periumbilical abdominal pain this past 08/11/2020. He states that the pain has been waxing and waning, and is made worse if he sits up, otherwise, he has not identified any modifiers. He has had nausea, but no vomiting. He does not recall when his last bowel movement was, but states that it was hard. He also reports more than 1 year of dysuria and urinary frequency, however, he has not had any medical evaluation for this. No recent fever. The patient states that he has had a similar abdominal pain about 5 times in the past, and was told by prior ED evaluations that it was due to constipation. The patient has a history of diabetes, but stopped taking his Metformin in February or March 2020 in preparation for an anterior cervical discectomy and fusion. He did not restart it. He does not check his own blood glucoses. EMS found the patient's blood glucose to be 217. Here in the ED, the patient is found to be hemodynamically stable, afebrile, saturating 99% on room air. He does not appear to be in any distress whatsoever. Prior to Wednesday, the patient denies having a recent fever, chills, sore throat, ear pain, nasal or sinus congestion, cough, dyspnea, chest pain, palpitations, nausea, vomiting, constipation, diarrhea, abdominal pain, urinary symptoms, recent weight gain or weight loss, recent bloody bowel movements or black bowel movements, recent joint aches, headaches, or rashes. The patient's PCP is LARISSA Sebastian, however, he will be switching to Dr. Jerry Huber tomorrow, 08/14/2020. His Neurosurgeon is Dr. Guido Schuster. He has not received an influenza vaccine this season, but agreed to receive one here in the ED. - Related Data Allergies Allergy/AdvReac Type Severity Reaction Status Date / Time amoxicillin Allergy Mild Cannot Verified 03/29/20 15:34 Remember Penicillins Allergy Mild Cannot Verified 03/29/20 15:34 Remember Home Meds: Home Meds DULoxetine HCl [Cymbalta] 60 mg PO DAILY 01/04/16 [History] Ondansetron [Zofran ODT] 4 mg PO Q6H PRN #20 tab.dis 05/04/19 [Rx] Rosuvastatin [Crestor] 20 mg PO DAILY 05/04/19 [History] risperiDONE 3 mg PO BID 05/04/19 [History] Ubidecarenone [Co Q-10] 1 cap PO DAILY 11/04/19 [History] clonazePAM [Clonazepam] 1 mg PO BEDTIME #10 tablet 03/07/20 [Rx] ARIPiprazole [Abilify] 10 mg PO DAILY 03/29/20 [History] DULoxetine [Cymbalta] 30 mg PO DAILY 03/29/20 [History] Propranolol [Inderal] 10 mg PO BID 03/29/20 [History] hydrOXYzine pamoate [Hydroxyzine Pamoate] 25 mg PO TID PRN 03/29/20 [History] Past Medical History HEENT History: Reports: Impaired Vision Cardiovascular History: Reports: High Cholesterol Respiratory History: Reports: Sleep Apnea (nightly CPAP 18) Gastrointestinal History: Reports: GERD, Hemorrhoids Musculoskeletal History: Reports: Neck Pain, Chronic (cervical disc disease, s/p ACDF) Psychiatric History: Reports: Anxiety, PTSD, Schizophrenia, Other (See Below) (Fibromyalgia) Endocrine/Metabolic History: Reports: Diabetes, Type II, Obesity/BMI 30+ - Past Surgical History HEENT Surgical History: Reports: Oral Surgery (dental extractions) Neurological Surgical History: Reports: C-Spine (ACDF 03/14/2020) Social & Family History - Tobacco Use Tobacco Use Status *Q: Never Tobacco User Tobacco Use Within Last Twelve Months: Smokeless Tobacco (Chewed up to 3 cans/day from 1995 to 2015) - Caffeine Use Caffeine Use: Reports: Coffee, Soda - Alcohol Use Alcohol Use History: No - Recreational Drug Use Recreational Drug Use: Yes Drug Use in Last 12 Months: No Recreational Drug Type: Reports: Marijuana/Hashish (last smoked in HS) - Living Situation & Occupation Living situation: Reports: , with Spouse Occupation: Disabled ED ROS GENERAL - Review of Systems Review Of Systems: Comprehensive ROS is negative, except as noted in HPI. GI/Abdominal: Reports: Constipation (chronic) ED EXAM GENERAL NO PERIP PULSE - Physical Exam Exam: See Below Exam Limited By: No Limitations General Appearance: Alert, WD/WN, No Apparent Distress Eye Exam: Bilateral Eye: EOMI, Normal Inspection Ears: Normal External Exam, Hearing Grossly Normal Nose: Normal Inspection Throat/Mouth: Normal Inspection, Normal Lips, Normal Voice, No Airway Compromise Head: Atraumatic, Normocephalic Neck: Normal Inspection, Full Range of Motion Respiratory/Chest: No Respiratory Distress, Lungs Clear, Normal Breath Sounds, No Accessory Muscle Use Cardiovascular: Normal Peripheral Pulses, Regular Rate, Rhythm, No Gallop, No JVD, No Murmur, No Rub GI/Abdominal: Normal Bowel Sounds, Soft, Non-Tender (including periumbilically), No Organomegaly, No Distention, No Abnormal Bruit, No Mass Back Exam: Normal Inspection, Full Range of Motion, NT Extremities: Normal Inspection, Normal Range of Motion, Normal Capillary Refill Neurological: Alert, Oriented, Normal Cognition, No Motor/Sensory Deficits Psychiatric: Normal Affect Skin Exam: Warm, Dry, Intact, Normal Color, No Rash Course - Vital Signs Last Recorded V/S: Last Vital Signs Temp 36.6 C 08/12/20 22:34 Pulse 88 08/12/20 22:34 Resp 16 08/12/20 22:34 BP 129/80 08/12/20 22:34 Pulse Ox 99 08/12/20 22:34 - Orders/Labs/Meds Orders: Active Orders 24 hr Category Date Time Status Influenza Vaccine Charge [RC] .DISCHARGE Care 08/13/20 02:10 Active Abdomen 1V Flat [CR] Stat Exams 08/13/20 00:36 Taken Labs: Laboratory Tests 08/13/20 08/13/20 08/13/20 Range/Units 00:42 00:42 01:55 WBC 7.23 (4.23-9.07) K/mm3 RBC 5.56 (4.63-6.08) M/mm3 Hgb 16.1 D (13.7-17.5) gm/dl Hct 47.5 (40.1-51.0) % MCV 85.4 D (79.0-92.2) fl MCH 29.0 (25.7-32.2) pg MCHC 33.9 (32.2-35.5) g/dl RDW Std Deviation 37.2 (35.1-43.9) fL Plt Count 317 D (163-337) K/mm3 MPV 10.4 (9.4-12.3) fl Neutrophils % (Manual) 51 (40-60) % Band Neutrophils % 5 (0-10) % Lymphocytes % (Manual) 25 (20-40) % Atypical Lymphs % 0 % Monocytes % (Manual) 13 H (2-10) % Eosinophils % (Manual) 4 (0.8-7.0) % Basophils % (Manual) 2 H (0.2-1.2) Platelet Estimate Adequate Plt Morphology Comment Normal RBC Morph Comment Normal Sodium 141 (136-145) mEq/L Potassium 4.0 (3.5-5.1) mEq/L Chloride 101 (98-107) mEq/L Carbon Dioxide 33 H (21-32) mEq/L Anion Gap 11.0 (5-15) BUN 14 (7-18) mg/dL Creatinine 1.2 (0.7-1.3) mg/dL Est Cr Clr Drug Dosing TNP Estimated GFR (MDRD) > 60 (>60) mL/min BUN/Creatinine Ratio 11.7 L (14-18) Glucose 190 H (74-106) mg/dL Calcium 9.7 (8.5-10.1) mg/dL Magnesium 2.1 (1.8-2.4) mg/dl Total Bilirubin 0.4 (0.2-1.0) mg/dL AST 24 (15-37) U/L ALT 50 (16-63) U/L Alkaline Phosphatase 129 H (46-116) U/L Total Protein 7.7 (6.4-8.2) g/dl Albumin 3.9 (3.4-5.0) g/dl Globulin 3.8 gm/dL Albumin/Globulin Ratio 1.0 (1-2) Lipase 129 (73-393) U/L Urine Color Yellow (Yellow) Urine Appearance Clear (Clear) Urine pH 7.0 (5.0-8.0) Ur Specific [place] > or = 1.030 (1.005-1.030) Urine Protein Negative (Negative) Urine Glucose (UA) 2+ H (Negative) Urine Ketones Negative (Negative) Urine Occult Blood Negative (Negative) Urine Nitrite Negative (Negative) Urine Bilirubin Negative (Negative) Urine Urobilinogen 0.2 (0.2-1.0) Ur Leukocyte Esterase Negative (Negative) Urine RBC 0-5 (0-5) /hpf Urine WBC 0-5 (0-5) /hpf Ur Epithelial Cells 0-5 (0-5) /hpf Urine Bacteria Few (FEW) /hpf Urine Mucus Few (FEW) /hpf Meds: Medications Discontinued Medications Generic Name Dose Route Start Last Admin Trade Name Bebe PRN Reason Stop Dose Admin Sodium Chloride 1,000 mls @ 999 mls/hr 08/13/20 00:37 08/13/20 00:41 Normal Saline IV 08/13/20 01:37 999 mls/hr ONETIME ONE Administration Influenza Virus Vaccine 60 mcg 08/13/20 02:15 Fluzone Quad [id number] Syringe IM 08/13/20 02:16 .ONCE ONE Ondansetron HCl 4 mg 08/13/20 00:37 08/13/20 00:41 Zofran IVPUSH 08/13/20 00:38 4 mg ONETIME ONE Administration - Re-Assessments/Exams Free Text/Narrative Re-Assessment/Exam: 08/13/20 00:37 As above, the patient states that he developed crampy periumbilical abdominal pain this past Wednesday, and that he has had nausea without vomiting, and constipation for an undetermined length of time. He also reports more than 1 year of dysuria with urinary frequency. No recent fever, and he is hemodynamically stable. On physical exam, he has no tenderness to palpation of his entire abdomen. I have ordered a work-up that includes several blood tests, a urinalysis, and a flatplate x-ray of his abdomen. In the meantime, the patient will be given IV fluid and IV Zofran. 08/13/20 01:54 Single view flat plate abdominal x-ray appears to demonstrate a fair amount of stool in the right colon, some along the transverse colon, and not much in the left colon. Otherwise nonspecific bowel gas pattern. 2 pelvic phleboliths incidentally noted. Formal read per the Radiologist pending. The patient's CBC is unremarkable. His CMP is remarkable for a bicarbonate modestly elevated at 33, and hyperglycemia of 190. His alkaline phosphatase is slightly elevated at 129, with the remainder of his CMP being unremarkable. His magnesium level is within normal limits at 2.1. His lipase level is within normal limits at 129. The patient has not yet provided a urine sample. 08/13/20 02:37 The patient's urinalysis is unremarkable. 08/13/20 02:39 Test results discussed with the patient and his (now present). As above, today's work-up is grossly unremarkable. He does not appear to be significantly constipated, and she does not have a UTI. I would like him to restart his Metformin, but since he will be meeting with Dr. Huber tomorrow, 08/14/2020, they can discuss that at that time. The patient will be given an influenza vaccine prior to discharge. Departure - Departure Time of Disposition: 02:40 Disposition: Home, Self-Care 01 Condition: Good Clinical Impression: Periumbilical abdominal pain of unknown etiology, Hyperglycemia due to type 2 diabetes mellitus - Discharge Information *PRESCRIPTION DRUG MONITORING PROGRAM REVIEWED*: Not Applicable *COPY OF PRESCRIPTION DRUG MONITORING REPORT IN PATIENT DASHA: Not Applicable Referrals: Glenny Segura PA-C [Ordering Only Provider] - Jerry Huber MD [Ordering Only Provider] - Guido Schuster MD [Ordering Only Provider] - Forms: ED Department Discharge Additional Instructions: You were seen in the emergency room for central crampy abdominal pain since Wednesday, along with nausea, and more than 1 year of uncomfortable, frequent urination. Work-up in the ER included several blood tests, a urinalysis, and an abdominal x-ray. Your work-up was remarkable for a blood sugar elevated at 190, otherwise, the remainder of your work-up was unremarkable. The cause of your abdominal pain is not entirely clear. You are not significantly constipated. The cause of your urinary symptoms is not clear. You do not have a urinary tract infection. We recommend that you discuss your symptoms with your new PCP, Dr. Jerry Huber, when you see him at your previously scheduled appointment tomorrwednesday, 08/14/2020. If any other problems, please do not hesitate to return to the ER. You were given an influenza vaccine during your ER visit. Sepsis Event Note (ED) - Evaluation Sepsis Screening Result: No Definite Risk - Focused Exam Vital Signs: Vital Signs Temp Pulse Resp BP Pulse Ox 08/12/20 22:34 36.6 C 88 16 129/80 99 - My Orders Last 24 Hours: My Active Orders 08/13/20 00:36 Abdomen 1V Flat [CR] Stat 08/13/20 02:10 Influenza Vaccine Charge [RC] .DISCHARGE - Assessment/Plan Last 24 Hours: My Active Orders 08/13/20 00:36 Abdomen 1V Flat [CR] Stat 08/13/20 02:10 Influenza Vaccine Charge [RC] .DISCHARGE
[2020-08-13] MEDS ORDERED: FLU VACC QS2020-21(6MOS UP)/PF 60 MCG/0.5 ML SYRINGE IM ONE (02:15)
--- NOTE | 2020-08-13 08:30 | CR ---
Abdomen: Supine view of the abdomen was obtained. Comparison: Prior abdominal x-ray of 11/04/19. Bowel gas pattern appears normal. Scattered stool is noted within the colon which is felt to be within normal limits. Slight joint space narrowing is noted within the right hip. Minimal degenerative change is scattered within the spine. Phleboliths are noted within the pelvis. Impression: 1. Nothing acute is seen on supine abdominal x-ray. Diagnostic code #2
== END 2020-08-13 02:55 | disposition home or self-care (01) ==
LOC: JD.ED 22:31
DX: E11.65 Type 2 diabetes mellitus with hyperglycemia (principal); E78.00 Pure hypercholesterolemia, unspecified; E66.9 Obesity, unspecified; Z79.899 Other long term (current) drug therapy; Z23 Encounter for immunization; Z88.0 Allergy status to penicillin
CPT/HCPCS: 36415; 74018; 80053; 81001; 83690; 83735; 85007; 85027; 90686; 96374; 99284; G0008; J2405; J7030

== ENCOUNTER 2020-09-15 02:40 | Emergency (ER) | payer MEDICARE, OTHER ==
[2020-09-15 02:52] VITALS: BP 125/84; PULSE 102
--- NOTE | 2020-09-15 03:16 | EDM.PDOC ---
ED HPI GENERAL MEDICAL PROBLEM - General Chief Complaint: General Stated Complaint: issues sleepinhg with bipap machine Time Seen by Provider: 09/15/20 02:56 Source of Information: Reports: Patient, Family () History Limitations: Reports: No Limitations - History of Present Illness INITIAL COMMENTS - FREE TEXT/NARRATIVE: Mr. Pillai is a pleasant 40-year-old gentleman with a past medical history significant for obstructive sleep apnea, on CPAP for the past 5 years, approximately, who now presents the ED stating that when he originally started on it, it worked well, but that over time he has progressively been waking up with the sensation that he can't breathe. He states that it was especially bad tonight. His CPAP settings are set remotely from his Upper Marker's office in [place], but he believes it is currently between 12 and 18. He states that he last saw his Upper Marker last year, but that he has an appointment to see him again this coming 09/24/2020. Here in the ED, the patient is initially found to be slightly tachycardic at 102 bpm, otherwise, he is hemodynamically stable, afebrile, saturating 94% on room air. Other than his CPAP issues, the patient denies having a recent fever, chills, sore throat, ear pain, nasal or sinus congestion, cough, dyspnea, chest pain, palpitations, nausea, vomiting, constipation, diarrhea, abdominal pain, urinary symptoms, recent weight gain or weight loss, recent bloody bowel movements or black bowel movements, recent joint aches, headaches, or rashes. The patient's PCP is Dr. Jerry Huber. His Upper Marker is Dr. Rayshawn Haro. His Neurosurgeon is Dr. Guido Schuster. He received an influenza vaccine on 08/13/2020. - Related Data Allergies Allergy/AdvReac Type Severity Reaction Status Date / Time amoxicillin Allergy Mild Cannot Verified 03/29/20 15:34 Remember Penicillins Allergy Mild Cannot Verified 09/15/20 02:52 Remember Home Meds: Home Meds DULoxetine HCl [Cymbalta] 60 mg PO DAILY 01/04/16 [History] Ondansetron [Zofran ODT] 4 mg PO Q6H PRN #20 tab.dis 10/24/19 [Rx] Rosuvastatin [Crestor] 20 mg PO DAILY 05/04/19 [History] risperiDONE 3 mg PO BID 05/04/19 [History] Ubidecarenone [Co Q-10] 1 cap PO DAILY 11/04/19 [History] clonazePAM [Clonazepam] 1 mg PO BEDTIME #10 tablet 03/07/20 [Rx] ARIPiprazole [Abilify] 10 mg PO DAILY 03/29/20 [History] DULoxetine [Cymbalta] 30 mg PO DAILY 03/29/20 [History] Propranolol [Inderal] 10 mg PO BID 03/29/20 [History] hydrOXYzine pamoate [Hydroxyzine Pamoate] 25 mg PO TID PRN 03/29/20 [History] Past Medical History HEENT History: Reports: Impaired Vision Cardiovascular History: Reports: High Cholesterol Respiratory History: Reports: Sleep Apnea (nightly CPAP) Gastrointestinal History: Reports: GERD, Hemorrhoids Musculoskeletal History: Reports: Neck Pain, Chronic (cervical disc disease, s/p ACDF) Psychiatric History: Reports: Anxiety, PTSD, Schizophrenia, Other (See Below) (Fibromyalgia) Endocrine/Metabolic History: Reports: Diabetes, Type II, Obesity/BMI 30+ - Past Surgical History HEENT Surgical History: Reports: Oral Surgery (dental extractions) Neurological Surgical History: Reports: C-Spine (ACDF 03/14/2020) Social & Family History - Tobacco Use Tobacco Use Status *Q: Never Tobacco User Tobacco Use Within Last Twelve Months: Smokeless Tobacco (Chewed up to 3 cans/day from 5797-5620) - Caffeine Use Caffeine Use: Reports: None - Alcohol Use Alcohol Use History: No - Recreational Drug Use Recreational Drug Use: Yes Drug Use in Last 12 Months: No Recreational Drug Type: Reports: Marijuana/Hashish (last smoked in HS) - Living Situation & Occupation Living situation: Reports: , with Spouse Occupation: Disabled ED ROS GENERAL - Review of Systems Review Of Systems: Comprehensive ROS is negative, except as noted in HPI. ED EXAM, GENERAL - Physical Exam Exam: See Below Exam Limited By: No Limitations General Appearance: Alert, WD/WN, No Apparent Distress Eye Exam: Bilateral Eye: EOMI, Normal Inspection Ears: Normal External Exam, Hearing Grossly Normal Nose: Normal Inspection Throat/Mouth: Normal Inspection, Normal Lips, Normal Voice, No Airway Compromise Head: Atraumatic, Normocephalic Neck: Normal Inspection, Full Range of Motion Respiratory/Chest: No Respiratory Distress, Lungs Clear, Normal Breath Sounds, No Accessory Muscle Use. No: Decreased Breath Sounds, Crackles, Rhonchi, Wheezing, Stridor, Prolonged Expiration Cardiovascular: Normal Peripheral Pulses, Regular Rate, Rhythm, No Gallop, No JVD, No Murmur, No Rub Peripheral Pulses: 3+: Radial (L), Radial (R) GI/Abdominal: Normal Bowel Sounds, Soft, Non-Tender, No Organomegaly, No Distention, No Abnormal Bruit, No Mass Back Exam: Normal Inspection, Full Range of Motion, NT Extremities: Normal Inspection, Normal Range of Motion, No Pedal Edema, Normal Capillary Refill Neurological: Alert, Oriented, Normal Cognition, No Motor/Sensory Deficits Psychiatric: Normal Affect Skin Exam: Warm, Dry, Intact, Normal Color, No Rash Course - Vital Signs Last Recorded V/S: Last Vital Signs Temp 36.7 C 09/15/20 02:49 Pulse 102 H 09/15/20 02:49 Resp 18 09/15/20 02:49 BP 125/84 09/15/20 02:49 Pulse Ox 94 L 09/15/20 02:49 - Re-Assessments/Exams Free Text/Narrative Re-Assessment/Exam: 09/15/20 03:09 We have asked the respiratory therapist to come and talk to the patient, to see if there is anything that can be done with the patient's CPAP in the short term. 09/15/20 03:53 The respiratory therapist evaluated the patient and found that his device was dirty - he hasn't been washing it - that he didn't have the mask on and off, and that a knob was broken. She cleaned his face mask and tubing, and adjusted the tightness of his mask, however, the broken knob will need to be fixed when he follows up with his granulator operator on 09/23/2020 or 09/24/2020. Departure - Departure Time of Disposition: 03:56 Disposition: Home, Self-Care 01 Condition: Good Clinical Impression: CPAP use counseling - Discharge Information *PRESCRIPTION DRUG MONITORING PROGRAM REVIEWED*: Not Applicable *COPY OF PRESCRIPTION DRUG MONITORING REPORT IN PATIENT DASHA: Not Applicable Referrals: Jerry Huber MD [Primary Care Provider] - Rayshawn Haro MD [Ordering Only Provider] - Guido Schuster MD [Ordering Only Provider] - Forms: ED Department Discharge Additional Instructions: You were seen in the emergency room for progressively worsening difficulty using your CPAP at night. Your unit was cleaned, and the tightness of your mask adjusted by our respiratory therapist. Please follow-up with your Upper Marker at your previously scheduled appointment later this month. If any other problems, please do not hesitate to return to the ER. Sepsis Event Note (ED) - Evaluation Sepsis Screening Result: No Definite Risk - Focused Exam Vital Signs: Vital Signs Temp Pulse Resp BP Pulse Ox 09/15/20 02:49 36.7 C 102 H 18 125/84 94 L
== END 2020-09-15 04:10 | disposition home or self-care (01) ==
LOC: JD.ED 02:40
DX: R06.00 Dyspnea, unspecified (principal); E78.00 Pure hypercholesterolemia, unspecified; E11.9 Type 2 diabetes mellitus without complications; E66.9 Obesity, unspecified; Z88.0 Allergy status to penicillin; Z87.891 Personal history of nicotine dependence
CPT/HCPCS: 99282; 99283

== ENCOUNTER 2021-10-24 10:33 | Inpatient (IN) | payer MEDICARE, OTHER ==
[2021-10-24] MEDS ORDERED: Sodium Chloride 0.9% 10 ML Syringe FLUSH PRN ×2 (11:01→12:17)
[2021-10-24] MEDS ORDERED: Albuterol/Ipratropium 3.0-0.5 MG/3 ML Neb Soln NEB ONE ×2 (11:28→12:48)
[2021-10-24] MEDS ORDERED: Iopamidol 755 Mg/ML 100 ML Bottle IVPUSH ONE (12:17)
[2021-10-24] MEDS ORDERED: methylPREDNISolone Sodium Succinate 125 MG/2 ML SDV IVPUSH ONE (12:48)
[2021-10-24] MEDS ORDERED: cefTRIAXone 2 GM in Sodium Chloride 0.9% 100 ML IV ONE (12:49)
[2021-10-24] MEDS ORDERED: Azithromycin 500 MG in Sodium Chloride 0.9% 250 ML IV ONE (13:54)
[2021-10-24 14:01] LABS: CORONAVIRUS COVID-19 NAA NEGATIVE (NEGATIVE)
[2021-10-24] MEDS ORDERED: Polyethylene Glycol 3350 Powder 17 GM Packet PO PRN (14:25)
[2021-10-24] MEDS ORDERED: Acetaminophen 325 MG Tab PO PRN (14:25)
[2021-10-24] MEDS ORDERED: Ondansetron 4 MG/2 ML SDV IV PRN (14:25)
[2021-10-24] MEDS ORDERED: Albuterol 0.083% 2.5 MG/3 ML Neb Soln NEB PRN (14:25)
[2021-10-24 14:50] LABS: HEMOGLOBIN A1C 7.3 %
[2021-10-24] MEDS: Albuterol/Ipratropium 3.0-0.5 MG/3 ML Neb Soln NEB SCH ×2 (16:25→20:18)
[2021-10-24] MEDS: Enoxaparin 40 MG/0.4 ML Syringe SUBCUT SCH (17:11)
[2021-10-24] MEDS: guaiFENesin/Dextromethorphan 100-10 MG/5 ML Soln 5 ML Cup PO SCH ×2 (17:11→20:30)
[2021-10-24] MEDS: Insulin Lispro 100 Unit/ML 3 ML KwikPen SUBCUT SCH ×2 (17:12→20:36)
[2021-10-24] MEDS: methylPREDNISolone Sodium Succinate 40 MG/1 ML SDV IVPUSH SCH (20:09)
[2021-10-24] MEDS: Propranolol 10 MG Tab PO SCH (20:13)
[2021-10-24] MEDS: ARIPIPRAZOLE 10 MG PO SCH (20:14)
[2021-10-24] MEDS: RISPERIDONE 3 MG PO SCH (20:15)
[2021-10-25] MEDS: Albuterol/Ipratropium 3.0-0.5 MG/3 ML Neb Soln NEB SCH ×4 (06:08→21:13)
[2021-10-25] MEDS: Insulin Lispro 100 Unit/ML 3 ML KwikPen SUBCUT SCH ×4 (08:10→20:53)
[2021-10-25] MEDS: ARIPIPRAZOLE 10 MG PO SCH ×2 (10:38→20:57)
[2021-10-25] MEDS: RISPERIDONE 3 MG PO SCH ×2 (10:39→20:56)
[2021-10-25] MEDS: Non-Formulary Medication 1 Each (Duloxetine Hcl 60 MG Capsule.Dr) PO SCH (10:40)
[2021-10-25] MEDS: Propranolol 10 MG Tab PO SCH (10:41)
[2021-10-25] MEDS: Enoxaparin 40 MG/0.4 ML Syringe SUBCUT SCH (10:43)
[2021-10-25] MEDS: methylPREDNISolone Sodium Succinate 40 MG/1 ML SDV IVPUSH SCH ×2 (10:44→20:34)
[2021-10-25] MEDS: guaiFENesin/Dextromethorphan 100-10 MG/5 ML Soln 5 ML Cup PO SCH ×3 (10:44→20:33)
[2021-10-25] MEDS ORDERED: Magnesium Hydroxide 400 MG/5 ML Susp 30 ML Cup PO PRN (11:55)
[2021-10-25] MEDS: traMADol 50 MG Tab PO PRN (12:03)
[2021-10-25] MEDS: cefTRIAXone 2 GM in Sodium Chloride 0.9% 100 ML IV SCH (12:04)
[2021-10-25] MEDS: Azithromycin 500 MG in Sodium Chloride 0.9% 250 ML IV SCH (13:31)
[2021-10-25 17:41] LABS: BORDETELLA PARAPERT IS1001 Not Detected (Not Detected)
[2021-10-25] MEDS: PROPRANOLOL 10 MG PO SCH (20:55)
[2021-10-26] MEDS: Albuterol/Ipratropium 3.0-0.5 MG/3 ML Neb Soln NEB SCH ×4 (06:18→21:10)
[2021-10-26] MEDS: Insulin Lispro 100 Unit/ML 3 ML KwikPen SUBCUT SCH ×4 (08:52→21:20)
[2021-10-26] MEDS: PROPRANOLOL 10 MG PO SCH ×2 (08:53→21:25)
[2021-10-26] MEDS: Polyethylene Glycol 3350 Powder 17 GM Packet PO SCH (08:54)
[2021-10-26] MEDS: Enoxaparin 40 MG/0.4 ML Syringe SUBCUT SCH (08:54)
[2021-10-26] MEDS: guaiFENesin/Dextromethorphan 100-10 MG/5 ML Soln 5 ML Cup PO SCH ×3 (08:55→21:03)
[2021-10-26] MEDS: methylPREDNISolone Sodium Succinate 40 MG/1 ML SDV IVPUSH SCH ×2 (08:55→21:02)
[2021-10-26] MEDS: RISPERIDONE 3 MG PO SCH ×2 (08:55→21:20)
[2021-10-26] MEDS: traMADol 50 MG Tab PO PRN (08:56)
[2021-10-26] MEDS: DULOXETINE HCL 30 MG PO SCH (10:10)
[2021-10-26] MEDS: ARIPIPRAZOLE 10 MG PO SCH (10:12)
[2021-10-26] MEDS: cefTRIAXone 2 GM in Sodium Chloride 0.9% 100 ML IV SCH (11:53)
[2021-10-26] MEDS: Azithromycin 500 MG in Sodium Chloride 0.9% 250 ML IV SCH ×2 (12:47→15:19)
[2021-10-26] MEDS: Non-Formulary Medication 1 Each (Duloxetine Hcl 60 MG Capsule.Dr) PO SCH (15:21)
[2021-10-26] MEDS: ARIPiprazole 10 MG Tab PO SCH (21:02)
[2021-10-27] MEDS: Albuterol/Ipratropium 3.0-0.5 MG/3 ML Neb Soln NEB SCH ×2 (06:18→09:40)
[2021-10-27] MEDS: ARIPiprazole 10 MG Tab PO SCH ×2 (08:13→20:57)
[2021-10-27] MEDS: guaiFENesin/Dextromethorphan 100-10 MG/5 ML Soln 5 ML Cup PO SCH ×3 (08:13→20:58)
[2021-10-27] MEDS: methylPREDNISolone Sodium Succinate 40 MG/1 ML SDV IVPUSH SCH (08:13)
[2021-10-27] MEDS: Enoxaparin 40 MG/0.4 ML Syringe SUBCUT SCH (08:13)
[2021-10-27] MEDS: Insulin Lispro 100 Unit/ML 3 ML KwikPen SUBCUT SCH ×4 (08:14→21:07)
[2021-10-27] MEDS: DULOXETINE HCL 30 MG PO SCH (08:15)
[2021-10-27] MEDS: Polyethylene Glycol 3350 Powder 17 GM Packet PO SCH (08:15)
[2021-10-27] MEDS: PROPRANOLOL 10 MG PO SCH ×2 (08:15→21:06)
[2021-10-27] MEDS: RISPERIDONE 3 MG PO SCH ×2 (08:16→21:07)
[2021-10-27] MEDS ORDERED: Albuterol/Ipratropium 3.0-0.5 MG/3 ML Neb Soln NEB PRN (10:55)
[2021-10-27] MEDS: Cephalexin 500 MG Cap PO SCH ×2 (14:17→20:57)
[2021-10-27] MEDS ORDERED: Magnesium Hydroxide 400 MG/5 ML Susp 30 ML Cup PO ONE (20:30)
[2021-10-27] MEDS: traMADol 50 MG Tab PO PRN (20:56)
[2021-10-28] MEDS: Cephalexin 500 MG Cap PO SCH ×2 (03:19→05:24)
[2021-10-28] MEDS ORDERED: predniSONE 20 MG Tab PO SCH (07:00)
[2021-10-28] MEDS: guaiFENesin/Dextromethorphan 100-10 MG/5 ML Soln 5 ML Cup PO SCH (08:49)
[2021-10-28] MEDS: Enoxaparin 40 MG/0.4 ML Syringe SUBCUT SCH (08:49)
[2021-10-28] MEDS: Polyethylene Glycol 3350 Powder 17 GM Packet PO SCH (08:50)
[2021-10-28] MEDS: ARIPiprazole 10 MG Tab PO SCH (08:50)
[2021-10-28] MEDS: Insulin Lispro 100 Unit/ML 3 ML KwikPen SUBCUT SCH ×2 (09:00→12:11)
[2021-10-28] MEDS: PROPRANOLOL 10 MG PO SCH (09:01)
[2021-10-28] MEDS: RISPERIDONE 3 MG PO SCH (09:03)
[2021-10-28] MEDS: DULOXETINE HCL 30 MG PO SCH (09:03)
[2021-10-28 11:29] VITALS: BP 134/91; PULSE 84
== END 2021-10-28 13:16 | disposition home or self-care (01) | DRG 193 ==
LOC: JD.ED 10:33 → JD.MS 14:25
PROVIDERS: ADMIT Internal Medicine; ATTEND Internal Medicine
DX: J18.9 Pneumonia, unspecified organism (principal); J12.3 Human metapneumovirus pneumonia; J96.02 Acute respiratory failure with hypercapnia; H54.7 Unspecified visual loss; G47.30 Sleep apnea, unspecified; E78.00 Pure hypercholesterolemia, unspecified; G47.33 Obstructive sleep apnea (adult) (pediatric); Z20.822 Contact with and (suspected) exposure to COVID-19; E78.5 Hyperlipidemia, unspecified; K21.9 Gastro-esophageal reflux disease without esophagitis; M54.2 Cervicalgia; G89.29 Other chronic pain; F41.9 Anxiety disorder, unspecified; F43.10 Post-traumatic stress disorder, unspecified; F20.9 Schizophrenia, unspecified; E11.9 Type 2 diabetes mellitus without complications; E66.9 Obesity, unspecified; J40 Bronchitis, not specified as acute or chronic; R94.31 Abnormal electrocardiogram [ECG] [EKG]; R79.82 Elevated C-reactive protein (CRP); Z99.81 Dependence on supplemental oxygen; Z87.01 Personal history of pneumonia (recurrent); Z68.36 Body mass index [BMI] 36.0-36.9, adult; Z88.0 Allergy status to penicillin; Z88.1 Allergy status to other antibiotic agents; Z88.8 Allergy status to other drugs, medicaments and biological substances; Z79.84 Long term (current) use of oral hypoglycemic drugs; Z79.52 Long term (current) use of systemic steroids; Z79.899 Other long term (current) drug therapy
CPT/HCPCS: 0240U; 36415; 36600; 71045; 71275; 80053; 82803; 82947; 83036; 83605; 83735; 83880; 84484; 85025; 85379; 85610; 86140; 86738; 87040; 87486; 87581; 87633; 87798; 87899; 93005; 93307; 94640; 94667; 94668; 94761; 94762; 93010; 99284; A9270-GY; J0456; J0696; J1650; J1815; J2920; J2930; J3490; J7050; J7512; J7620-GY; Q9967

== ENCOUNTER 2022-08-22 19:41 | Emergency (ER) | payer MEDICARE, OTHER ==
[2022-08-22] MEDS ORDERED: Sodium Chloride 0.9% 1,000 ML IV STA ×2 (20:42→22:44)
[2022-08-22] MEDS ORDERED: Ondansetron 4 MG/2 ML SDV IVPUSH ONE (20:42)
[2022-08-22] MEDS ORDERED: Sodium Chloride 0.9% 10 ML Syringe FLUSH PRN (20:42)
[2022-08-22] MEDS ORDERED: Sodium Chloride 0.9% 10 ML Syringe FLUSH ONE (21:00)
[2022-08-22] MEDS ORDERED: Iopamidol 612 MG/ML 100 ML Bottle IVPUSH ONE (21:00)
[2022-08-22 21:32] LABS: ESTIMATED GFR 69 mL/min (>60)
[2022-08-22] MEDS ORDERED: Acetaminophen 325 MG Tab PO ONE (21:35)
[2022-08-22 21:56] LABS: CORONAVIRUS COVID-19 NAA NEGATIVE (NEGATIVE)
[2022-08-22 23:49] VITALS: BP 112/80; PULSE 131
== END 2022-08-22 23:48 | disposition home or self-care (01) ==
LOC: JD.ED 19:41
DX: A08.4 Viral intestinal infection, unspecified (principal); E78.00 Pure hypercholesterolemia, unspecified; K21.9 Gastro-esophageal reflux disease without esophagitis; E11.9 Type 2 diabetes mellitus without complications; E66.9 Obesity, unspecified; Z68.34 Body mass index [BMI] 34.0-34.9, adult; Z87.891 Personal history of nicotine dependence; Z20.822 Contact with and (suspected) exposure to COVID-19
CPT/HCPCS: 0241U; 36415; 74177; 80053; 81001; 82947; 83605; 83690; 84484; 85025; 86140; 87040; 93005; 96361; 96374; 99284; A9270; J2405; J3490; J7030; Q9967; 93010

== ENCOUNTER 2022-12-27 05:12 | Emergency (ER) | payer MEDICARE, OTHER ==
[2022-12-27 06:18] VITALS: BP 128/108; PULSE 81
== END 2022-12-27 06:18 | disposition home or self-care (01) ==
LOC: JD.ED 05:12
DX: E11.65 Type 2 diabetes mellitus with hyperglycemia (principal); K21.9 Gastro-esophageal reflux disease without esophagitis; E66.9 Obesity, unspecified; Z88.0 Allergy status to penicillin; Z88.8 Allergy status to other drugs, medicaments and biological substances; Z68.38 Body mass index [BMI] 38.0-38.9, adult; Z79.899 Other long term (current) drug therapy
CPT/HCPCS: 82947; 99284

== ENCOUNTER 2023-07-04 21:32 | Emergency (ER) | payer MEDICARE ==
[2023-07-04 21:51] VITALS: BP 140/93; PULSE 90
[2023-07-04 22:12] LABS: BASOPHILS ABSOLUTE AUTO 0.1 K/mm3 (0.0-0.2); BASOPHILS PERCENT AUTO 0.6 % (0.0-1.0); EOSINOPHILS PERCENT AUTO 0.3 % (0.0-6.0); HEMOGLOBIN 16.9 gm/dl (14.0-18.0); IMMATURE GRAN ABSOLUTE AUTO 0.02 K/mm3 (0.00-0.05); IMMATURE GRAN PERCENT AUTO 0.2 % (0.0-0.4); LYMPHOCYTES ABSOLUTE AUTO 1.6 K/mm3 (1.0-4.8); LYMPHOCYTES PERCENT AUTO 16.9 % (24.0-44.0); MEAN CORPUSCULAR HEMOGLOBIN 30.6 pg (28.0-32.0); MEAN CORPUSCULAR HGB CONC 35.2 g/dl (32.0-36.0); MEAN CORPUSCULAR VOLUME 86.8 fl (83.0-99.0); MEAN PLATELET VOLUME 10.5 fl (9.4-12.4); MONOCYTES ABSOLUTE AUTO 0.6 K/mm3 (0.0-0.8); MONOCYTES PERCENT AUTO 6.6 % (0.0-8.0); NEUTROPHILS ABSOLUTE AUTO 7.2 K/mm3 (1.8-7.7); NEUTROPHILS PERCENT AUTO 75.4 % (41.0-71.0); PLATELET COUNT,PLT 290 K/mm3 (150-400); RED BLOOD CELL COUNT 5.53 M/mm3 (4.52-5.90); WHITE BLOOD CELL COUNT,WBC 9.59 K/mm3 (3.9-11.3)
[2023-07-04 22:42] LABS: A/G RATIO 1.1 (1-2); ALANINE AMINOTRANSFERASE,ALT 25 U/L (16-63); ALBUMIN 4.1 g/dl (3.4-5.0); ALKALINE PHOSPHATASE 108 U/L (46-116); ANION GAP 15.8 (5-15); ASPARTATE AMNIOTRANSFERASE,AST 20 U/L (15-37); BILIRUBIN TOTAL 0.5 mg/dL (0.2-1.0); BLOOD UREA NITROGEN,BUN 20 mg/dL (7-18); BUN/CREATININE RATIO 15.4 (14-18); CALCIUM 9.5 mg/dL (8.5-10.1); CARBON DIOXIDE,CO2 27 mEq/L (21-32); CHLORIDE,CL 105 mEq/L (98-107); CREATININE 1.3 mg/dL (0.7-1.3); ESTIMATED GFR 69 mL/min (>60); GLUCOSE RANDOM 98 mg/dL (70-99); POTASSIUM,K 3.8 mEq/L (3.5-5.1); PROTEIN TOTAL,TP 7.8 g/dl (6.4-8.2); SODIUM,NA 144 mEq/L (136-145); TSH 2.879 uIU/mL (0.358-3.74)
[2023-07-04 22:44] LABS: ACETAMINOPHEN 0 ug/mL (10-30)
[2023-07-04 23:11] LABS: BARBITURATE SCREEN,URINE NEGATIVE (CUTOFF=200); BENZODIAZEPINES SCREEN,URINE NEGATIVE (CUTOFF=150); BUPRENORPHINE SCREEN,URINE NEGATIVE (CUTOFF=10); METHADONE SCREEN, URINE NEGATIVE (CUT0FF=200); METHAMPHETAMINES SCREEN, URINE NEGATIVE (CUTOFF=500); OXYCODONE SCREEN,URINE NEGATIVE (CUT0FF=100); THC SCREEN,URINE 20 NG/ML NEGATIVE (CUTOFF=50)
[2023-07-04 23:13] LABS: AMPHETAMINES SCREEN, URINE NEGATIVE (CUTOFF=500)
== END 2023-07-05 08:30 ==
LOC: JD.ED 21:32
DX: F20.9 Schizophrenia, unspecified (principal); F32.A Depression, unspecified; E78.00 Pure hypercholesterolemia, unspecified; E11.9 Type 2 diabetes mellitus without complications; K21.9 Gastro-esophageal reflux disease without esophagitis; E66.9 Obesity, unspecified; Z79.899 Other long term (current) drug therapy; Z88.0 Allergy status to penicillin; Z88.8 Allergy status to other drugs, medicaments and biological substances
CPT/HCPCS: 36415; 80053; 80143; 80179; 80306; 80307; 84443; 85025; 99285